=== PATIENT | female | born 1965 | race Caucasian/White ===

== ENCOUNTER 2022-01-13 22:22 | Inpatient (IN) | payer OTHER ==
[~2022-01-13] VITALS: Ht 165.1 cm; Wt 56.2 kg
[2022-01-13] MEDS ORDERED: NS 1,000 ML IV ONE ×2 (22:35→23:30)
[2022-01-13] MEDS ORDERED: IPRATROPIUM 0.5MG/ALBUTEROL 2.5MG INH SOL UD 3ML (DUONEB) NEB ONE ×2 (22:35)
[2022-01-13] MEDS ORDERED: ACETAMINOPHEN TAB 650MG DOSE (2X325MG) PO ONE (22:35)
[2022-01-13 22:57] LABS: BASO # 0.1 10^3/uL (0.0-0.2); BASO % 0.9 % (0.0-1.0); EOS % 0.1 % (0.0-3.0); HEMATOCRIT 42.2 % (36.0-47.0); HEMOGLOBIN 13.7 g/dl (12.0-15.5); LYMPH # 1.1 10^3/uL (1.5-5.0); LYMPH % 13.1 % (24.0-44.0); MEAN CORPUSCULAR HEMOGLOBIN 31.4 pg (27.0-33.0); MEAN CORPUSCULAR HGB CONC 32.5 g/dl (32.0-36.5); MEAN CORPUSCULAR VOLUME 96.6 fl (80.0-96.0); MONO # 0.5 10^3/uL (0.0-0.8); MONO % 6.1 % (2.0-8.0); NEUTROPHILS # 6.7 10^3/uL (1.5-8.5); NEUTROPHILS % 79.3 % (36.0-66.0); PLATELET COUNT, AUTOMATED 369 10^3/uL (150-450); RED BLOOD COUNT 4.37 10^6/uL (4.00-5.40); WHITE BLOOD COUNT 8.5 10^3/uL (4.0-10.0)
[2022-01-13 22:58] LABS: ABG BASE EXCESS -5.5 (-2.0-2.0); ABG HCO3 19.6 MEQ/L (22.0-26.0); ABG O2 SATURATION 87.7 % (95.0-99.0); ABG PARTIAL PRESSURE CO2 37.2 mmHg (35.0-45.0); ABG PARTIAL PRESSURE O2 56.9 mmHg (75.0-100.0); ABG STANDARD HCO3 19.8 MEQ/L (22.0-26.0); ABG TOTAL CO2 20.8 MEQ/L (22.0-29.0)
[2022-01-13 23:07] LABS: INR 1.14
[2022-01-13 23:08] LABS: PARTIAL THROMBOPLASTIN TIME 28.6 SECONDS (25.9-37.0)
[2022-01-13 23:21] LABS: ALBUMIN 3.1 GM/DL (3.2-5.2); ALT/SGPT 20 U/L (12-78); AMYLASE 48 U/L (25-115); BILIRUBIN,DIRECT 0.4 MG/DL (0.0-0.2); BILIRUBIN,TOTAL 0.7 MG/DL (0.2-1.0); BLOOD UREA NITROGEN 10 MG/DL (7-18); C REACTIVE PROTEIN QUANTITATIV 7.48 MG/DL (0.00-0.30); CALCIUM LEVEL 8.6 MG/DL (8.5-10.1); CARBON DIOXIDE LEVEL 23 MEQ/L (21-32); CHLORIDE LEVEL 105 MEQ/L (98-107); CREATININE FOR GFR 0.68 MG/DL (0.55-1.30); GLOMERULAR FILTRATION RATE > 60.0 (>51); GLUCOSE, FASTING 195 MG/DL (70-100); POTASSIUM SERUM 3.9 MEQ/L (3.5-5.1); SODIUM LEVEL 137 MEQ/L (136-145); TOTAL PROTEIN 7.2 GM/DL (6.4-8.2)
[2022-01-13 23:22] LABS: CK-MB VALUE MASS 1.5 NG/ML (<3.6); MB/CK RELATIVE INDEX 2.59 (< OR =4)
[2022-01-13] MEDS ORDERED: AZITHROMYCIN INJ 500 MG, VIAL MATE ADAPTER 1 EACH in NS 250 ML IV ONE (23:30)
[2022-01-13] MEDS ORDERED: cefTRIAXone SOD 1 GM in D5W MINI-BAG PLUS 50 ML IV ONE (23:30)
[2022-01-13 23:41] LABS: RSV AMPLIFICATION NEGATIVE (NEGATIVE)
[2022-01-14] VITALS (9 sets, daily range): BP systolic 115–137; BP diastolic 68–87; O2SAT 92–95
[2022-01-14 00:20] LABS: ABG PARTIAL PRESSURE CO2 34.3 mmHg (35.0-45.0); ABG PARTIAL PRESSURE O2 116.7 mmHg (75.0-100.0); ABG pH (ARTERIAL) 7.337 UNITS (7.350-7.450)
[2022-01-14 00:21] LABS: ABG STANDARD HCO3 18.8 MEQ/L (22.0-26.0)
[2022-01-14] MEDS ORDERED: ISOVUE-370 76% 100ML VIAL As Ordered ONE (00:48)
[2022-01-14] MEDS ORDERED: HOME MED LIST COMPLETE! XX SCH (02:40)
[2022-01-14 02:50] LABS: CK-MB VALUE MASS 1.8 NG/ML (<3.6); MB/CK RELATIVE INDEX 3.6 (< OR =4)
[2022-01-14] MEDS ORDERED: HEPARIN SOD (PORCINE) 5000UNITS/ML 1ML VIAL/SYRINGE IV PRN (03:20)
[2022-01-14] MEDS ORDERED: HEPARIN SOD (PORCINE) 5000UNITS/ML 1ML VIAL/SYRINGE IV ONE (03:20)
[2022-01-14] MEDS ORDERED: HEPARIN DRIP 25,000 UNITS in IV 1 EA IV SCH (03:20)
[2022-01-14 05:27] LABS: NT-PRO BNP 5921 PG/ML (<125)
[2022-01-14 08:20] LABS: ABG BASE EXCESS -6.4 (-2.0-2.0); ABG HCO3 17.6 MEQ/L (22.0-26.0); ABG O2 SATURATION 98.6 % (95.0-99.0); ABG PARTIAL PRESSURE CO2 30.3 mmHg (35.0-45.0); ABG PARTIAL PRESSURE O2 130.8 mmHg (75.0-100.0); ABG STANDARD HCO3 19.3 MEQ/L (22.0-26.0); ABG TOTAL CO2 18.5 MEQ/L (22.0-29.0); ABG pH (ARTERIAL) 7.382 UNITS (7.350-7.450)
[2022-01-14] MEDS: ENOXAPARIN 100MG/1ML SYRINGE (J1650 PER 10MG) SC SCH ×2 (09:00→21:15)
[2022-01-14] MEDS: ASPIRIN 81MG ENTERIC TABLET PO SCH (09:00)
[2022-01-14] MEDS: ATORVASTATIN 20 MG TAB PO SCH (09:00)
[2022-01-14] MEDS: BARICITINIB 2MG TABLET (OLUMIANT) FOR EUA PO SCH (09:00)
[2022-01-14 09:27] LABS: ABG BASE EXCESS -7.3 (-2.0-2.0); ABG HCO3 16.6 MEQ/L (22.0-26.0); ABG O2 SATURATION 91.9 % (95.0-99.0); ABG PARTIAL PRESSURE O2 63.4 mmHg (75.0-100.0); ABG STANDARD HCO3 18.5 MEQ/L (22.0-26.0); ABG TOTAL CO2 17.5 MEQ/L (22.0-29.0); ABG pH (ARTERIAL) 7.376 UNITS (7.350-7.450)
[2022-01-14] MEDS ORDERED: hydrOXYzine 25 MG TAB PO PRN (10:30)
[2022-01-14] MEDS: dexameTHASONE 4 MG/ML 1ML VIAL (J1100 PER 1MG) IV SCH (10:56)
[2022-01-14] MEDS: DOXYCYCLINE HYCLATE 100 MG in D5W MINI-BAG PLUS 100 ML IV SCH ×2 (11:04→22:04)
[2022-01-14 11:13] LABS: BASO % 0.1 % (0.0-1.0); HEMATOCRIT 35.6 % (36.0-47.0); LYMPH % 9.8 % (24.0-44.0); MEAN CORPUSCULAR HEMOGLOBIN 30.7 pg (27.0-33.0); MEAN CORPUSCULAR HGB CONC 32.3 g/dl (32.0-36.5); MEAN CORPUSCULAR VOLUME 95.2 fl (80.0-96.0); MONO # 0.4 10^3/uL (0.0-0.8); MONO % 4.6 % (2.0-8.0); NEUTROPHILS # 8.2 10^3/uL (1.5-8.5); NEUTROPHILS % 85.2 % (36.0-66.0); RED BLOOD COUNT 3.74 10^6/uL (4.00-5.40); WHITE BLOOD COUNT 9.7 10^3/uL (4.0-10.0)
[2022-01-14 11:16] LABS: HEMOGLOBIN 11.5 g/dl (12.0-15.5)
[2022-01-14 11:17] LABS: PLATELET COUNT, AUTOMATED 261 10^3/uL (150-450)
[2022-01-14 11:25] LABS: ALT/SGPT 27 U/L (12-78); BILIRUBIN,DIRECT 0.3 MG/DL (0.0-0.2); BILIRUBIN,TOTAL 0.5 MG/DL (0.2-1.0); BLOOD UREA NITROGEN 11 MG/DL (7-18); CALCIUM LEVEL 7.9 MG/DL (8.5-10.1); CARBON DIOXIDE LEVEL 20 MEQ/L (21-32); CHLORIDE LEVEL 112 MEQ/L (98-107); CREATININE FOR GFR 0.44 MG/DL (0.55-1.30); GLOMERULAR FILTRATION RATE > 60.0 (>51); GLUCOSE, FASTING 108 MG/DL (70-100); LDH LACTATE DEHYDROGENASE 355 U/L (84-246); POTASSIUM SERUM 3.8 MEQ/L (3.5-5.1); SODIUM LEVEL 141 MEQ/L (136-145)
[2022-01-14 11:26] LABS: ALBUMIN 2.5 GM/DL (3.2-5.2); C REACTIVE PROTEIN QUANTITATIV 7.21 MG/DL (0.00-0.30); CHOLESTEROL LEVEL 127 MG/DL (<200); CHOLESTEROL RISK RATIO 3.735 (<5); FERRITIN 5127 NG/ML (8-252); HDL CHOLESTEROL 34 MG/DL (>40); LDL CHOLESTEROL 84 MG/DL (<100); MAGNESIUM LEVEL 1.8 MG/DL (1.8-2.4); NON-HDL-C 93 MG/DL; NT-PRO BNP 6792 PG/ML (<125); TRIGLYCERIDES LEVEL 43 MG/DL (<150)
[2022-01-14] MEDS: IPRATROPIUM 0.5MG/ALBUTEROL 2.5MG INH SOL UD 3ML (DUONEB) NEB SCH ×2 (14:00→19:26)
[2022-01-14] MEDS ORDERED: REMDESIVIR 200 MG in NS 250 ML IV ONE (14:00)
[2022-01-14 14:09] LABS: ABG BASE EXCESS -5.3 (-2.0-2.0); ABG HCO3 18.1 MEQ/L (22.0-26.0); ABG O2 SATURATION 94.6 % (95.0-99.0); ABG PARTIAL PRESSURE CO2 28.9 mmHg (35.0-45.0); ABG PARTIAL PRESSURE O2 71.1 mmHg (75.0-100.0); ABG STANDARD HCO3 20.1 MEQ/L (22.0-26.0); ABG pH (ARTERIAL) 7.414 UNITS (7.350-7.450)
[2022-01-14] MEDS ORDERED: SODIUM CHLORIDE 0.9% INJ 10 ML SYR IV ONE (16:00)
[2022-01-14 16:38] LABS: MB/CK RELATIVE INDEX 5.41 (< OR =4)
[2022-01-14 19:46] LABS: MB/CK RELATIVE INDEX 5.41 (< OR =4)
[2022-01-14] MEDS: guaiFENesin ER 600 MG TAB PO SCH (21:14)
[2022-01-14 22:44] LABS: CHLORIDE,RANDOM URINE 141 MEQ/L; CREATININE,RANDOM URINE 76.3 MG/DL; POTASSIUM RANDOM URINE 43.9 MEQ/L; SODIUM,RANDOM URINE 89 MEQ/L
[2022-01-15] VITALS (14 sets, daily range): BP systolic 100–119; BP diastolic 60–84; O2SAT 90–97
[2022-01-15] MEDS: cefTRIAXone SOD 1 GM in D5W MINI-BAG PLUS 50 ML IV SCH (00:12)
[2022-01-15] MEDS: IPRATROPIUM 0.5MG/ALBUTEROL 2.5MG INH SOL UD 3ML (DUONEB) NEB SCH ×4 (02:00→19:25)
[2022-01-15 05:32] LABS: MEAN CORPUSCULAR HEMOGLOBIN 30.8 pg (27.0-33.0); MEAN CORPUSCULAR HGB CONC 33.3 g/dl (32.0-36.5); MEAN CORPUSCULAR VOLUME 92.5 fl (80.0-96.0); PLATELET COUNT, AUTOMATED 290 10^3/uL (150-450); RED BLOOD COUNT 3.89 10^6/uL (4.00-5.40)
[2022-01-15 06:05] LABS: ALBUMIN 2.3 GM/DL (3.2-5.2); ALT/SGPT 47 U/L (12-78); BILIRUBIN,DIRECT 0.3 MG/DL (0.0-0.2); BILIRUBIN,TOTAL 0.5 MG/DL (0.2-1.0); BLOOD UREA NITROGEN 12 MG/DL (7-18); CARBON DIOXIDE LEVEL 23 MEQ/L (21-32); CHLORIDE LEVEL 111 MEQ/L (98-107); GLOMERULAR FILTRATION RATE > 60.0 (>51); GLUCOSE, FASTING 74 MG/DL (70-100); LDH LACTATE DEHYDROGENASE 468 U/L (84-246); MAGNESIUM LEVEL 1.7 MG/DL (1.8-2.4); POTASSIUM SERUM 3.9 MEQ/L (3.5-5.1); SODIUM LEVEL 140 MEQ/L (136-145); TOTAL PROTEIN 5.7 GM/DL (6.4-8.2)
[2022-01-15 06:06] LABS: C REACTIVE PROTEIN QUANTITATIV 8.18 MG/DL (0.00-0.30); FERRITIN 2672 NG/ML (8-252); NT-PRO BNP 6774 PG/ML (<125)
[2022-01-15] MEDS ORDERED: MAG SULF 1GM/100ML (MAG RUN) 1 GM in IV 1 EA IV ONE (08:00)
[2022-01-15] MEDS ORDERED: ACETAMINOPHEN 325 MG TAB PO ONE (08:45)
[2022-01-15] MEDS: BARICITINIB 2MG TABLET (OLUMIANT) FOR EUA PO SCH (09:20)
[2022-01-15] MEDS: dexameTHASONE 4 MG/ML 1ML VIAL (J1100 PER 1MG) IV SCH (09:21)
[2022-01-15] MEDS: ASPIRIN 81MG ENTERIC TABLET PO SCH (09:21)
[2022-01-15] MEDS: guaiFENesin ER 600 MG TAB PO SCH ×2 (09:22→21:18)
[2022-01-15] MEDS: ATORVASTATIN 20 MG TAB PO SCH (09:22)
[2022-01-15] MEDS: ENOXAPARIN 100MG/1ML SYRINGE (J1650 PER 10MG) SC SCH (09:22)
[2022-01-15 12:00] LABS: CK-MB VALUE MASS 4.1 NG/ML (<3.6); MB/CK RELATIVE INDEX 3.04 (< OR =4)
[2022-01-15] MEDS: DOXYCYCLINE HYCLATE 100 MG in D5W MINI-BAG PLUS 100 ML IV SCH (12:36)
[2022-01-15] MEDS: SODIUM CHLORIDE 0.9% INJ 10 ML SYR IV SCH (15:32)
[2022-01-15] MEDS: REMDESIVIR 100 MG in NS 250 ML IV SCH (15:32)
[2022-01-15 17:07] LABS: MYCOPLASMA PNEUMONIAE IgG 103 U/mL (0-99); MYCOPLASMA PNEUMONIAE IgM <770 U/mL (0-769)
[2022-01-15] MEDS: ENOXAPARIN 30MG/0.3ML SYRINGE (J1650 PER 10MG) SC SCH (21:17)
[2022-01-16] VITALS (12 sets, daily range): BP systolic 103–120; BP diastolic 65–75; O2SAT 96–98
[2022-01-16] MEDS: DOXYCYCLINE HYCLATE 100 MG in D5W MINI-BAG PLUS 100 ML IV SCH ×3 (00:02→23:13)
[2022-01-16] MEDS: IPRATROPIUM 0.5MG/ALBUTEROL 2.5MG INH SOL UD 3ML (DUONEB) NEB SCH ×4 (01:15→20:19)
[2022-01-16] MEDS: cefTRIAXone SOD 1 GM in D5W MINI-BAG PLUS 50 ML IV SCH (01:47)
[2022-01-16 07:42] LABS: HEMATOCRIT 34.7 % (36.0-47.0); HEMOGLOBIN 11.5 g/dl (12.0-15.5); MEAN CORPUSCULAR HEMOGLOBIN 30.6 pg (27.0-33.0); MEAN CORPUSCULAR HGB CONC 33.1 g/dl (32.0-36.5); MEAN CORPUSCULAR VOLUME 92.3 fl (80.0-96.0); PLATELET COUNT, AUTOMATED 289 10^3/uL (150-450); RED BLOOD COUNT 3.76 10^6/uL (4.00-5.40); WHITE BLOOD COUNT 9.9 10^3/uL (4.0-10.0)
[2022-01-16 08:20] LABS: ALBUMIN 2.4 GM/DL (3.2-5.2); ALT/SGPT 66 U/L (12-78); BILIRUBIN,TOTAL 0.5 MG/DL (0.2-1.0); BLOOD UREA NITROGEN 16 MG/DL (7-18); C REACTIVE PROTEIN QUANTITATIV 5.81 MG/DL (0.00-0.30); CALCIUM LEVEL 8.1 MG/DL (8.5-10.1); CARBON DIOXIDE LEVEL 26 MEQ/L (21-32); CHLORIDE LEVEL 109 MEQ/L (98-107); CREATININE FOR GFR 0.42 MG/DL (0.55-1.30); FERRITIN 1436 NG/ML (8-252); GLOMERULAR FILTRATION RATE > 60.0 (>51); GLUCOSE, FASTING 86 MG/DL (70-100); LDH LACTATE DEHYDROGENASE 395 U/L (84-246); NT-PRO BNP 7204 PG/ML (<125); POTASSIUM SERUM 4.2 MEQ/L (3.5-5.1); SODIUM LEVEL 142 MEQ/L (136-145); TOTAL PROTEIN 5.8 GM/DL (6.4-8.2)
[2022-01-16] MEDS: dexameTHASONE 4 MG/ML 1ML VIAL (J1100 PER 1MG) IV SCH (09:14)
[2022-01-16] MEDS: ENOXAPARIN 30MG/0.3ML SYRINGE (J1650 PER 10MG) SC SCH ×2 (09:14→20:17)
[2022-01-16] MEDS: BARICITINIB 2MG TABLET (OLUMIANT) FOR EUA PO SCH (09:15)
[2022-01-16] MEDS: ATORVASTATIN 20 MG TAB PO SCH (09:15)
[2022-01-16] MEDS: guaiFENesin ER 600 MG TAB PO SCH ×2 (09:15→20:17)
[2022-01-16] MEDS: ASPIRIN 81MG ENTERIC TABLET PO SCH (09:15)
[2022-01-16] MEDS: REMDESIVIR 100 MG in NS 250 ML IV SCH (14:38)
[2022-01-16] MEDS: SODIUM CHLORIDE 0.9% INJ 10 ML SYR IV SCH (14:38)
[2022-01-16] MEDS ORDERED: ACETAMINOPHEN TAB 650MG DOSE (2X325MG) PO PRN (20:35)
[2022-01-17] VITALS: O2SAT 96
[2022-01-17] MEDS: cefTRIAXone SOD 1 GM in D5W MINI-BAG PLUS 50 ML IV SCH (00:30)
[2022-01-17] MEDS: IPRATROPIUM 0.5MG/ALBUTEROL 2.5MG INH SOL UD 3ML (DUONEB) NEB SCH ×2 (01:35→07:57)
[2022-01-17 04:00] VITALS: O2SAT 96
[2022-01-17 04:22] VITALS: BP 117/71
[2022-01-17 08:00] VITALS: BP 133/75
[2022-01-17 08:36] LABS: HEMATOCRIT 36.5 % (36.0-47.0); MEAN CORPUSCULAR HEMOGLOBIN 30.8 pg (27.0-33.0); MEAN CORPUSCULAR HGB CONC 32.9 g/dl (32.0-36.5); MEAN CORPUSCULAR VOLUME 93.6 fl (80.0-96.0); PLATELET COUNT, AUTOMATED 318 10^3/uL (150-450); WHITE BLOOD COUNT 8.1 10^3/uL (4.0-10.0)
[2022-01-17 09:05] LABS: ALBUMIN 2.6 GM/DL (3.2-5.2); ALT/SGPT 66 U/L (12-78); BILIRUBIN,TOTAL 0.4 MG/DL (0.2-1.0); BLOOD UREA NITROGEN 15 MG/DL (7-18); C REACTIVE PROTEIN QUANTITATIV 3.12 MG/DL (0.00-0.30); CALCIUM LEVEL 8.6 MG/DL (8.5-10.1); CARBON DIOXIDE LEVEL 23 MEQ/L (21-32); CHLORIDE LEVEL 109 MEQ/L (98-107); FERRITIN 969 NG/ML (8-252); GLOMERULAR FILTRATION RATE > 60.0 (>51); GLUCOSE, FASTING 99 MG/DL (70-100); LDH LACTATE DEHYDROGENASE 391 U/L (84-246); NT-PRO BNP 9166 PG/ML (<125); POTASSIUM SERUM 4.4 MEQ/L (3.5-5.1); SODIUM LEVEL 141 MEQ/L (136-145); TOTAL PROTEIN 6.3 GM/DL (6.4-8.2)
[2022-01-17] MEDS: ATORVASTATIN 20 MG TAB PO SCH (09:41)
[2022-01-17] MEDS: ASPIRIN 81MG ENTERIC TABLET PO SCH (09:41)
[2022-01-17] MEDS: dexameTHASONE 4 MG/ML 1ML VIAL (J1100 PER 1MG) IV SCH (09:41)
[2022-01-17] MEDS: BARICITINIB 2MG TABLET (OLUMIANT) FOR EUA PO SCH (09:41)
[2022-01-17] MEDS: guaiFENesin ER 600 MG TAB PO SCH (09:41)
[2022-01-17] MEDS: ENOXAPARIN 30MG/0.3ML SYRINGE (J1650 PER 10MG) SC SCH (09:42)
[2022-01-17] MEDS: DOXYCYCLINE HYCLATE 100 MG in D5W MINI-BAG PLUS 100 ML IV SCH (09:42)
[2022-01-17] MEDS ORDERED: ATOR1TAB21 PO (11:29)
[2022-01-17] MEDS ORDERED: IPRA0.00 NEB (11:29)
[2022-01-17] MEDS ORDERED: MUCI600T31 PO (11:29)
[2022-01-17] MEDS ORDERED: LOSA25TA13 PO (11:29)
[2022-01-17] MEDS ORDERED: PRED10TA2 PO (11:29)
[2022-01-17] MEDS ORDERED: ASPI-551 PO (11:29)
[2022-01-17 12:27] VITALS: O2SAT 93
[2022-01-17] MEDS ORDERED: COMBAER6 INH (12:44)
[2022-01-17 18:07] LABS: BODY FLUID CULTURE Not indicated. (.); LEGIONELLA ANTIGEN URINE Negative (Negative); ORGANISM ID Not indicated. (.); SPECIMEN SOURCE Urine (.); URINE STREP PNEUMONIAE ANTIGEN Negative (Negative)
[2022-01-17] MEDS ORDERED: DOXY-350 PO (18:29)
[2022-01-17] MEDS ORDERED: CEFD300CAP PO (18:29)
[2022-01-18 14:09] LABS: CHLAMYDIA PNEUMONIAE IgM <1:10 (Neg:<1:10)
== END 2022-01-17 14:40 | disposition home or self-care (01) | DRG 137 ==
LOC: M ED 22:22 → EDBEDREQTM 01-14 08:53 → EDBEDREQSVC 01-14 08:53 → M ED INP 01-14 09:26 → EDBD 01-14 09:26 → ENRESERV 01-14 11:22 → M ICU 01-14 11:55 → M 4MAIN 01-15 18:12
PROVIDERS: ADMIT Internal Medicine; ATTEND Internal Medicine
DX: U07.1 COVID-19 (principal); I21.A1 Myocardial infarction type 2; J96.01 Acute respiratory failure with hypoxia; J12.82 Pneumonia due to coronavirus disease 2019; J15.9 Unspecified bacterial pneumonia; E87.2 Acidosis; F17.200 Nicotine dependence, unspecified, uncomplicated; F41.9 Anxiety disorder, unspecified; J44.9 Chronic obstructive pulmonary disease, unspecified; Z79.82 Long term (current) use of aspirin; Z79.899 Other long term (current) drug therapy

== ENCOUNTER 2022-02-25 10:09 | Emergency (ER) | payer OTHER ==
[~2022-02-25] VITALS: Ht 152.4 cm; Wt 54.5 kg
[~2022-02-25 10:09] MED LIST: ASPI-551 PO; ATOR1TAB21 PO; CEFD300CAP PO; COMBAER6 INH; DOXY-350 PO; IPRA0.00 NEB; LOSA25TA13 PO; MUCI600T31 PO; PRED10TA2 PO
[2022-02-25] MEDS ORDERED: NS 500 ML IV ONE (12:25)
[2022-02-25] MEDS: COMBIVENT RESPIMAT 100-20MCG INHALER 4GM INH SCH ×2 (13:05→13:06)
[2022-02-25 13:14] LABS: HEMATOCRIT 42.1 % (36.0-47.0); HEMOGLOBIN 13.4 g/dl (12.0-15.5); MEAN CORPUSCULAR HEMOGLOBIN 30.2 pg (27.0-33.0); MEAN CORPUSCULAR HGB CONC 31.8 g/dl (32.0-36.5); MEAN CORPUSCULAR VOLUME 94.8 fl (80.0-96.0); PLATELET COUNT, AUTOMATED 414 10^3/uL (150-450); RED BLOOD COUNT 4.44 10^6/uL (4.00-5.40); WHITE BLOOD COUNT 8.6 10^3/uL (4.0-10.0)
[2022-02-25 13:26] LABS: BLOOD UREA NITROGEN 7 MG/DL (7-18); CALCIUM LEVEL 9.2 MG/DL (8.5-10.1); CARBON DIOXIDE LEVEL 26 MEQ/L (21-32); CHLORIDE LEVEL 107 MEQ/L (98-107); CREATININE FOR GFR 0.53 MG/DL (0.55-1.30); GLOMERULAR FILTRATION RATE > 60.0 (>51); GLUCOSE, FASTING 83 MG/DL (70-100); SODIUM LEVEL 140 MEQ/L (136-145)
[2022-02-25 13:56] LABS: ATYPICAL LYMPH 1 % (0-5); EOSINOPHILS 1 % (0-3); LYMPHOCYTES 34 % (16-44); MONOCYTES 6 % (0-5); NEUTROPHILS 58 % (28-66); PLATELET ESTIMATE NORMAL (NORMAL)
[2022-02-25 13:57] LABS: ANISOCYTOSIS 1+; OVALOCYTES 1+
[2022-02-25 14:00] LABS: NT-PRO BNP 8074 PG/ML (<125)
[2022-02-25] MEDS ORDERED: FUROSEMIDE 40MG/4ML VIAL (J1940) IV ONE (15:15)
[2022-02-25] MEDS ORDERED: LASI40TA9 PO (15:48)
[2022-02-25] MEDS ORDERED: SPIR-10 PO (15:49)
[2022-02-25 16:16] VITALS: BP 137/76
== END 2022-02-25 16:52 | disposition home or self-care (01) ==
LOC: M ED 10:09
DX: I50.20 Unspecified systolic (congestive) heart failure (principal); R06.02 Shortness of breath; R94.31 Abnormal electrocardiogram [ECG] [EKG]; Z79.899 Other long term (current) drug therapy
CPT/HCPCS: 71046; 80048; 83880; 85025; 87486; 87581; 87633; 87798; 93005; 94640; 96361; 96374; 99284; J1940

== ENCOUNTER → 2022-03-08 | Outpatient (REF) | payer OTHER ==
[~2022-03-08] MED LIST changes: +LASI40TA9 PO; +SPIR-10 PO
[2022-03-08 16:35] LABS: BLOOD UREA NITROGEN 10 MG/DL (7-18); CALCIUM LEVEL 9.4 MG/DL (8.5-10.1); CARBON DIOXIDE LEVEL 30 MEQ/L (21-32); CHLORIDE LEVEL 104 MEQ/L (98-107); CREATININE FOR GFR 0.49 MG/DL (0.55-1.30); GLOMERULAR FILTRATION RATE > 60.0 (>51); GLUCOSE, FASTING 79 MG/DL (70-100); NT-PRO BNP 1676 PG/ML (<125); POTASSIUM SERUM 4.1 MEQ/L (3.5-5.1); SODIUM LEVEL 139 MEQ/L (136-145)
== END ==
LOC: M LABDRAWC 15:39
PROVIDERS: ATTEND Internal Medicine Cardiovascular Disease
DX: I50.30 Unspecified diastolic (congestive) heart failure (principal); I10 Essential (primary) hypertension

== ENCOUNTER 2022-08-31 11:56 | Inpatient (IN) | payer OTHER ==
[~2022-08-31] VITALS: Ht 152.4 cm; Wt 54.6 kg
[2022-08-31] VITALS (7 sets, daily range): BP systolic 130–142; BP diastolic 68–72; O2SAT 93–100
[2022-08-31] MEDS: TIOTROPIUM INHALER/CAPSULE (SPIRIVA) INH SCH (08:00)
[~2022-08-31 11:56] MED LIST changes: -DOXY-350 PO; +DOXY-444 PO
[2022-08-31] MEDS: METOPROLOL 5 MG/5 ML VIAL IV SCH ×5 (12:29→12:56)
[2022-08-31 12:33] LABS: ABG BASE EXCESS -1.7 (-2.0-2.0); ABG HCO3 21.6 MEQ/L (22.0-26.0); ABG O2 SATURATION 99.4 % (95.0-99.0); ABG PARTIAL PRESSURE CO2 32.9 mmHg (35.0-45.0); ABG PARTIAL PRESSURE O2 186.9 mmHg (75.0-100.0); ABG STANDARD HCO3 23.1 MEQ/L (22.0-26.0); ABG TOTAL CO2 22.6 MEQ/L (22.0-29.0); ABG pH (ARTERIAL) 7.435 UNITS (7.350-7.450)
[2022-08-31] MEDS ORDERED: ASPI81TA26 PO (13:02)
[2022-08-31] MEDS ORDERED: HOME MED LIST COMPLETE! XX SCH (13:05)
[2022-08-31 13:09] LABS: BASO # 0.1 10^3/uL (0.0-0.2); BASO % 0.4 % (0.0-1.0); EOS % 0.3 % (0.0-3.0); HEMATOCRIT 47.2 % (36.0-47.0); HEMOGLOBIN 15.8 g/dl (12.0-15.5); LYMPH # 2.9 10^3/uL (1.5-5.0); LYMPH % 25.3 % (24.0-44.0); MEAN CORPUSCULAR HEMOGLOBIN 31.5 pg (27.0-33.0); MEAN CORPUSCULAR HGB CONC 33.5 g/dl (32.0-36.5); MONO # 0.9 10^3/uL (0.0-0.8); MONO % 7.5 % (2.0-8.0); NEUTROPHILS # 7.7 10^3/uL (1.5-8.5); NEUTROPHILS % 66.2 % (36.0-66.0); PLATELET COUNT, AUTOMATED 244 10^3/uL (150-450); RED BLOOD COUNT 5.02 10^6/uL (4.00-5.40); WHITE BLOOD COUNT 11.6 10^3/uL (4.0-10.0)
[2022-08-31 13:32] LABS: INR 1.15
[2022-08-31 13:41] LABS: ALBUMIN 3.8 G/DL (3.2-5.2); ALKALINE PHOSPHATASE 81 U/L (46-116); ALT/SGPT 40 U/L (7.0-40); AST/SGOT 32 U/L (<34); BILIRUBIN,DIRECT 0.6 MG/DL (<0.4); BLOOD UREA NITROGEN 12 MG/DL (9-23); CALCIUM LEVEL 8.7 MG/DL (8.5-10.1); CARBON DIOXIDE LEVEL 22 MMOL/L (20-31); CHLORIDE LEVEL 102 MMOL/L (98-107); CPK CREATINE PHOSPHOKINASE 157 U/L (34-145); GLOMERULAR FILTRATION RATE > 60.0 (>51); GLUCOSE, FASTING 207 MG/DL (60-100); MB/CK RELATIVE INDEX 1.91 (< OR =4); POTASSIUM SERUM 4.3 MMOL/L (3.5-5.1); SODIUM LEVEL 137 MMOL/L (136-145); THYROID STIMULATING HORMONE 4.274 uIU/ML (0.55-4.78); TOTAL PROTEIN 6.7 G/DL (5.7-8.2)
[2022-08-31] MEDS ORDERED: FUROSEMIDE 40MG/4ML VIAL (J1940) IV ONE (13:45)
[2022-08-31] MEDS ORDERED: DIGOXIN INJ 0.5 MG/2 ML AMP IV ONE ×2 (13:55→14:50)
[2022-08-31] MEDS ORDERED: HEPARIN SOD (PORCINE) 5000UNITS/ML 1ML VIAL/SYRINGE IV PRN (14:55)
[2022-08-31] MEDS ORDERED: IPRATROPIUM 0.5MG/ALBUTEROL 2.5MG INH SOL UD 3ML (DUONEB) NEB PRN (15:20)
[2022-08-31 16:46] LABS: CHOLESTEROL LEVEL 160 MG/DL (<200); CHOLESTEROL RISK RATIO 6.69 (<5); HDL CHOLESTEROL 23.9 MG/DL (>40); LDL CHOLESTEROL 116.1 MG/DL (<100); NON-HDL-C 136 MG/DL; TRIGLYCERIDES LEVEL 100 MG/DL (<150)
[2022-08-31] MEDS: HEPARIN DRIP 25,000 UNITS in IV 1 EA IV SCH (17:33)
[2022-08-31] MEDS: METOPROLOL TART 25 MG TABLET PO SCH ×2 (18:14→23:17)
[2022-08-31] MEDS ORDERED: METOPROLOL TART 12.5 MG PER 1/2 TAB PO SCH (21:00)
[2022-08-31] MEDS: DIGOXIN 0.25 MG TAB PO SCH (21:02)
[2022-09-01] VITALS (16 sets, daily range): BP systolic 105–135; BP diastolic 52–88; O2SAT 93–97
[2022-09-01] MEDS: DIGOXIN 0.25 MG TAB PO SCH (03:27)
[2022-09-01] MEDS: METOPROLOL TART 25 MG TABLET PO SCH ×3 (05:59→17:30)
[2022-09-01 06:07] LABS: HEMATOCRIT 41.5 % (36.0-47.0); MEAN CORPUSCULAR HEMOGLOBIN 31.2 pg (27.0-33.0); MEAN CORPUSCULAR VOLUME 94.5 fl (80.0-96.0); PLATELET COUNT, AUTOMATED 197 10^3/uL (150-450); RED BLOOD COUNT 4.39 10^6/uL (4.00-5.40)
[2022-09-01 06:11] LABS: HEMOGLOBIN 13.7 g/dl (12.0-15.5)
[2022-09-01 07:01] LABS: BLOOD UREA NITROGEN 17 MG/DL (9-23); CALCIUM LEVEL 7.6 MG/DL (8.5-10.1); CARBON DIOXIDE LEVEL 25 MMOL/L (20-31); CHLORIDE LEVEL 101 MMOL/L (98-107); CREATININE FOR GFR 0.72 MG/DL (0.55-1.30); GLOMERULAR FILTRATION RATE > 60.0 (>51); GLUCOSE, FASTING 85 MG/DL (60-100); MAGNESIUM LEVEL 1.6 MG/DL (1.8-2.4); POTASSIUM SERUM 3.9 MMOL/L (3.5-5.1); SODIUM LEVEL 137 MMOL/L (136-145)
[2022-09-01] MEDS: TIOTROPIUM INHALER/CAPSULE (SPIRIVA) INH SCH (07:49)
[2022-09-01] MEDS ORDERED: MAG SULF 1GM/100ML (MAG RUN) 1 GM in IV 1 EA IV ONE (09:00)
[2022-09-01] MEDS ORDERED: DIGOXIN 0.125 MG TAB PO SCH (10:00)
[2022-09-01] MEDS: PANTOPRAZOLE 40MG TAB (PROTONIX) PO SCH (12:06)
[2022-09-01] MEDS: HEPARIN DRIP 25,000 UNITS in IV 1 EA IV SCH (16:33)
[2022-09-01 17:52] LABS: HEMATOCRIT 40.5 % (36.0-47.0); HEMOGLOBIN 13.5 g/dl (12.0-15.5)
[2022-09-02] VITALS (19 sets, daily range): BP systolic 96–130; BP diastolic 56–77; O2SAT 88–98
[2022-09-02 05:40] LABS: MEAN CORPUSCULAR HEMOGLOBIN 32.1 pg (27.0-33.0); MEAN CORPUSCULAR HGB CONC 33.3 g/dl (32.0-36.5); MEAN CORPUSCULAR VOLUME 96.3 fl (80.0-96.0); PLATELET COUNT, AUTOMATED 167 10^3/uL (150-450); RED BLOOD COUNT 4.05 10^6/uL (4.00-5.40); WHITE BLOOD COUNT 8.4 10^3/uL (4.0-10.0)
[2022-09-02] MEDS: METOPROLOL TART 25 MG TABLET PO SCH ×2 (05:45)
[2022-09-02 05:57] LABS: INR 1.1; PROTHROMBIN TIME 14.5 SECONDS (12.5-14.5)
[2022-09-02 05:58] LABS: PARTIAL THROMBOPLASTIN TIME 58.5 SECONDS (24.8-34.2)
[2022-09-02 06:32] LABS: BLOOD UREA NITROGEN 8 MG/DL (9-23); CALCIUM LEVEL 7.7 MG/DL (8.5-10.1); CARBON DIOXIDE LEVEL 27 MMOL/L (20-31); CHLORIDE LEVEL 104 MMOL/L (98-107); CREATININE FOR GFR 0.49 MG/DL (0.55-1.30); GLOMERULAR FILTRATION RATE > 60.0 (>51); GLUCOSE, FASTING 91 MG/DL (60-100); MAGNESIUM LEVEL 1.7 MG/DL (1.8-2.4); POTASSIUM SERUM 3.5 MMOL/L (3.5-5.1); SODIUM LEVEL 136 MMOL/L (136-145)
[2022-09-02] MEDS ORDERED: MAG SULF 1GM/100ML (MAG RUN) 1 GM in IV 1 EA IV ONE ×2 (08:00→10:05)
[2022-09-02] MEDS: TIOTROPIUM INHALER/CAPSULE (SPIRIVA) INH SCH (08:01)
[2022-09-02] MEDS: PANTOPRAZOLE 40MG TAB (PROTONIX) PO SCH (08:18)
[2022-09-02] MEDS ORDERED: POTASSIUM CHLORIDE 10MEQ SR TABLET PO ONE (10:05)
[2022-09-02] MEDS ORDERED: METOPROLOL TART 25 MG TABLET PO STA (12:12)
[2022-09-02] MEDS: HEPARIN DRIP 25,000 UNITS in IV 1 EA IV SCH (14:12)
[2022-09-02 18:13] LABS: INR 1.05
[2022-09-02 18:15] LABS: PARTIAL THROMBOPLASTIN TIME 55.6 SECONDS (24.8-34.2)
[2022-09-02] MEDS: METOPROLOL TART 50 MG TAB PO SCH (22:20)
[2022-09-03] VITALS (18 sets, daily range): BP systolic 114–154; BP diastolic 67–88; O2SAT 95–100
[2022-09-03 01:23] LABS: INR 1.01; PROTHROMBIN TIME 13.5 SECONDS (12.5-14.5)
[2022-09-03] MEDS: TIOTROPIUM INHALER/CAPSULE (SPIRIVA) INH SCH (07:29)
[2022-09-03 07:50] LABS: HEMATOCRIT 40.2 % (36.0-47.0); HEMOGLOBIN 13.1 g/dl (12.0-15.5); MEAN CORPUSCULAR HGB CONC 32.6 g/dl (32.0-36.5); MEAN CORPUSCULAR VOLUME 95.3 fl (80.0-96.0); PLATELET COUNT, AUTOMATED 202 10^3/uL (150-450); RED BLOOD COUNT 4.22 10^6/uL (4.00-5.40); WHITE BLOOD COUNT 8.6 10^3/uL (4.0-10.0)
[2022-09-03 08:02] LABS: INR 1.12; PROTHROMBIN TIME 14.7 SECONDS (12.5-14.5)
[2022-09-03 08:04] LABS: PARTIAL THROMBOPLASTIN TIME 72.9 SECONDS (24.8-34.2)
[2022-09-03 08:21] LABS: BLOOD UREA NITROGEN 9 MG/DL (9-23); CARBON DIOXIDE LEVEL 25 MMOL/L (20-31); CHLORIDE LEVEL 106 MMOL/L (98-107); CREATININE FOR GFR 0.46 MG/DL (0.55-1.30); GLOMERULAR FILTRATION RATE > 60.0 (>51); GLUCOSE, FASTING 122 MG/DL (60-100); MAGNESIUM LEVEL 1.7 MG/DL (1.8-2.4); POTASSIUM SERUM 3.9 MMOL/L (3.5-5.1); SODIUM LEVEL 140 MMOL/L (136-145)
[2022-09-03] MEDS: PANTOPRAZOLE 40MG TAB (PROTONIX) PO SCH (08:58)
[2022-09-03] MEDS: METOPROLOL TART 50 MG TAB PO SCH (08:58)
[2022-09-03] MEDS: HEPARIN DRIP 25,000 UNITS in IV 1 EA IV SCH (11:30)
[2022-09-03] MEDS ORDERED: ELIQ5TAB PO (11:39)
[2022-09-03] MEDS ORDERED: METOPROLOL TART 25 MG TABLET PO ONE (12:00)
[2022-09-03] MEDS: APIXABAN 5 MG TAB (ELIQUIS) PO SCH ×2 (13:27→20:11)
[2022-09-03] MEDS: MAGNESIUM OXIDE 400MG TAB (MAG-OX) PO SCH (17:22)
[2022-09-03] MEDS: VANCOMYCIN HCL 1,000 MG in D5W 250 ML IV SCH (17:23)
[2022-09-03] MEDS: METOPROLOL TART 25 MG TABLET PO SCH (20:12)
[2022-09-04] VITALS: BP 133/90
[2022-09-04 04:00] VITALS: BP 125/65
[2022-09-04] MEDS: VANCOMYCIN HCL 1,000 MG in D5W 250 ML IV SCH ×2 (06:14→17:36)
[2022-09-04 06:55] LABS: HEMATOCRIT 40.8 % (36.0-47.0); HEMOGLOBIN 13.5 g/dl (12.0-15.5); MEAN CORPUSCULAR HEMOGLOBIN 31.9 pg (27.0-33.0); MEAN CORPUSCULAR HGB CONC 33.1 g/dl (32.0-36.5); MEAN CORPUSCULAR VOLUME 96.5 fl (80.0-96.0); PLATELET COUNT, AUTOMATED 205 10^3/uL (150-450); RED BLOOD COUNT 4.23 10^6/uL (4.00-5.40); WHITE BLOOD COUNT 8.3 10^3/uL (4.0-10.0)
[2022-09-04 07:37] VITALS: BP 122/80
[2022-09-04 07:41] LABS: BLOOD UREA NITROGEN 10 MG/DL (9-23); CALCIUM LEVEL 8.4 MG/DL (8.5-10.1); CARBON DIOXIDE LEVEL 26 MMOL/L (20-31); CHLORIDE LEVEL 106 MMOL/L (98-107); CREATININE FOR GFR 0.51 MG/DL (0.55-1.30); GLOMERULAR FILTRATION RATE > 60.0 (>51); GLUCOSE, FASTING 146 MG/DL (60-100); MAGNESIUM LEVEL 1.9 MG/DL (1.8-2.4); POTASSIUM SERUM 4.4 MMOL/L (3.5-5.1); SODIUM LEVEL 141 MMOL/L (136-145)
[2022-09-04] MEDS: TIOTROPIUM INHALER/CAPSULE (SPIRIVA) INH SCH (07:45)
[2022-09-04] MEDS: APIXABAN 5 MG TAB (ELIQUIS) PO SCH (09:36)
[2022-09-04] MEDS: MAGNESIUM OXIDE 400MG TAB (MAG-OX) PO SCH (09:37)
[2022-09-04] MEDS: PANTOPRAZOLE 40MG TAB (PROTONIX) PO SCH (09:37)
[2022-09-04] MEDS: METOPROLOL TART 25 MG TABLET PO SCH (09:37)
[2022-09-04] MEDS: ACETAMINOPHEN TAB 650MG DOSE (2X325MG) PO PRN (09:37)
[2022-09-04 12:00] VITALS: BP 101/71
[2022-09-04 16:00] VITALS: BP 111/72
[2022-09-04] MEDS ORDERED: VANCOMYCIN HCL 500 MG in D5W MINI-BAG PLUS 100 ML IV ONE (19:00)
[2022-09-04 20:00] VITALS: BP 124/76
[2022-09-04] MEDS: ENOXAPARIN 60MG/0.6ML SYRINGE (J1650 PER 10MG) SC SCH (20:04)
[2022-09-04] MEDS ORDERED: METOPROLOL TART 25 MG TABLET PO SCH ×2 (21:00)
[2022-09-05] VITALS: BP 107/69
[2022-09-05 04:00] VITALS: BP 118/72
[2022-09-05 06:23] LABS: HEMATOCRIT 40.8 % (36.0-47.0); HEMOGLOBIN 13.5 g/dl (12.0-15.5); MEAN CORPUSCULAR HEMOGLOBIN 31.8 pg (27.0-33.0); MEAN CORPUSCULAR HGB CONC 33.1 g/dl (32.0-36.5); PLATELET COUNT, AUTOMATED 209 10^3/uL (150-450); RED BLOOD COUNT 4.25 10^6/uL (4.00-5.40); WHITE BLOOD COUNT 8.4 10^3/uL (4.0-10.0)
[2022-09-05] MEDS: VANCOMYCIN HCL 1,000 MG in D5W 250 ML IV SCH (06:31)
[2022-09-05 06:49] LABS: BLOOD UREA NITROGEN 13 MG/DL (9-23); CALCIUM LEVEL 8.3 MG/DL (8.5-10.1); CARBON DIOXIDE LEVEL 24 MMOL/L (20-31); CHLORIDE LEVEL 106 MMOL/L (98-107); CREATININE FOR GFR 0.56 MG/DL (0.55-1.30); GLOMERULAR FILTRATION RATE > 60.0 (>51); GLUCOSE, FASTING 100 MG/DL (60-100); MAGNESIUM LEVEL 1.9 MG/DL (1.8-2.4); POTASSIUM SERUM 4.2 MMOL/L (3.5-5.1); SODIUM LEVEL 141 MMOL/L (136-145)
[2022-09-05 07:38] VITALS: BP 138/84
[2022-09-05] MEDS ORDERED: METOPROLOL TARTRATE 100MG TAB PO ONE (08:40)
[2022-09-05] MEDS: TIOTROPIUM INHALER/CAPSULE (SPIRIVA) INH SCH (08:56)
[2022-09-05] MEDS: ENOXAPARIN 60MG/0.6ML SYRINGE (J1650 PER 10MG) SC SCH ×2 (08:57→20:45)
[2022-09-05] MEDS: MAGNESIUM OXIDE 400MG TAB (MAG-OX) PO SCH (08:58)
[2022-09-05] MEDS: PANTOPRAZOLE 40MG TAB (PROTONIX) PO SCH (08:58)
[2022-09-05] MEDS ORDERED: METOPROLOL TART 25 MG TABLET PO SCH (09:00)
[2022-09-05] MEDS ORDERED: FUROSEMIDE 20MG/2ML VIAL (J1940) IV ONE (11:40)
[2022-09-05] MEDS: ONDANSETRON 4MG 2ML VIAL IV SCH ×2 (11:41→17:01)
[2022-09-05 12:00] VITALS: BP 116/84
[2022-09-05] MEDS ORDERED: ceFAZolin SOD 2 GM in IV 1 EA IV SCH (12:00)
[2022-09-05] MEDS ORDERED: NAFCILLIN SOD 2 GM in D5W MINI-BAG PLUS 50 ML IV SCH (13:00)
[2022-09-05 16:00] VITALS: BP 112/70
[2022-09-05] MEDS ORDERED: PILL CUTTER 1 EACH XX PRN (16:40)
[2022-09-05] MEDS ORDERED: METOPROLOL TART 50 MG TAB PO ONE (16:45)
[2022-09-05 20:00] VITALS: BP 112/68
[2022-09-05] MEDS: METOPROLOL TART 25 MG TABLET PO SCH (20:45)
[2022-09-05] MEDS: RAMELTEON 8 MG TAB (ROZEREM) PO PRN (20:45)
[2022-09-06] VITALS: BP 106/72
[2022-09-06] MEDS: ONDANSETRON 4MG 2ML VIAL IV SCH ×6 (00:53→23:34)
[2022-09-06 04:00] VITALS: BP 116/75
[2022-09-06 05:53] LABS: HEMATOCRIT 42.4 % (36.0-47.0); HEMOGLOBIN 13.9 g/dl (12.0-15.5); MEAN CORPUSCULAR HEMOGLOBIN 31.8 pg (27.0-33.0); MEAN CORPUSCULAR HGB CONC 32.8 g/dl (32.0-36.5); PLATELET COUNT, AUTOMATED 228 10^3/uL (150-450); RED BLOOD COUNT 4.37 10^6/uL (4.00-5.40); WHITE BLOOD COUNT 8.2 10^3/uL (4.0-10.0)
[2022-09-06 06:20] LABS: CARBON DIOXIDE LEVEL 25 MMOL/L (20-31); CHLORIDE LEVEL 105 MMOL/L (98-107); POTASSIUM SERUM 3.9 MMOL/L (3.5-5.1); SODIUM LEVEL 140 MMOL/L (136-145)
[2022-09-06 06:26] LABS: BLOOD UREA NITROGEN 16 MG/DL (9-23); CALCIUM LEVEL 8.1 MG/DL (8.5-10.1); GLUCOSE, FASTING 83 MG/DL (60-100)
[2022-09-06 06:28] LABS: CREATININE FOR GFR 0.78 MG/DL (0.55-1.30); GLOMERULAR FILTRATION RATE > 60.0 (>51)
[2022-09-06] MEDS: ENOXAPARIN 60MG/0.6ML SYRINGE (J1650 PER 10MG) SC SCH ×2 (07:25→20:17)
[2022-09-06 08:00] VITALS: BP 110/66
[2022-09-06 08:01] LABS: ERYTHROCYTE SEDIMENTATION RATE 10 mm/hr (0-30)
[2022-09-06] MEDS: TIOTROPIUM INHALER/CAPSULE (SPIRIVA) INH SCH (08:13)
[2022-09-06] MEDS: PANTOPRAZOLE 40MG TAB (PROTONIX) PO SCH (09:24)
[2022-09-06] MEDS: METOPROLOL TARTRATE 100MG TAB PO SCH (09:25)
[2022-09-06 11:58] VITALS: BP 111/66
[2022-09-06 15:47] VITALS: BP 108/68
[2022-09-06 20:00] VITALS: BP 118/82
[2022-09-06] MEDS: ceFAZolin SOD 2 GM in IV 1 EA IV SCH (20:12)
[2022-09-06] MEDS: METOPROLOL TART 25 MG TABLET PO SCH (20:16)
[2022-09-06] MEDS: ACETAMINOPHEN TAB 650MG DOSE (2X325MG) PO PRN (20:16)
[2022-09-06] MEDS: RAMELTEON 8 MG TAB (ROZEREM) PO PRN (20:17)
[2022-09-07] VITALS (17 sets, daily range): BP systolic 107–148; BP diastolic 67–92; O2SAT 90–100
[2022-09-07] MEDS: ceFAZolin SOD 2 GM in IV 1 EA IV SCH ×3 (03:56→20:51)
[2022-09-07] MEDS: ONDANSETRON 4MG 2ML VIAL IV SCH ×4 (05:27→23:05)
[2022-09-07 07:43] LABS: HEMATOCRIT 40.5 % (36.0-47.0); HEMOGLOBIN 13.2 g/dl (12.0-15.5); MEAN CORPUSCULAR HEMOGLOBIN 31.6 pg (27.0-33.0); MEAN CORPUSCULAR HGB CONC 32.6 g/dl (32.0-36.5); MEAN CORPUSCULAR VOLUME 96.9 fl (80.0-96.0); PLATELET COUNT, AUTOMATED 234 10^3/uL (150-450); RED BLOOD COUNT 4.18 10^6/uL (4.00-5.40); WHITE BLOOD COUNT 8.2 10^3/uL (4.0-10.0)
[2022-09-07 08:11] LABS: CHLORIDE LEVEL 101 MMOL/L (98-107); POTASSIUM SERUM 4.2 MMOL/L (3.5-5.1); SODIUM LEVEL 137 MMOL/L (136-145)
[2022-09-07 08:12] LABS: CARBON DIOXIDE LEVEL 26 MMOL/L (20-31)
[2022-09-07 08:17] LABS: BLOOD UREA NITROGEN 23 MG/DL (9-23); CALCIUM LEVEL 8.2 MG/DL (8.5-10.1); GLUCOSE, FASTING 101 MG/DL (60-100)
[2022-09-07 08:18] LABS: MAGNESIUM LEVEL 1.9 MG/DL (1.8-2.4)
[2022-09-07 08:20] LABS: CREATININE FOR GFR 0.79 MG/DL (0.55-1.30); GLOMERULAR FILTRATION RATE > 60.0 (>51)
[2022-09-07 08:26] LABS: ATYPICAL LYMPH 5 % (0-5); EOSINOPHILS 2 % (0-3); LYMPHOCYTES 16 % (16-44); MONOCYTES 3 % (0-5); NEUTROPHILS 72 % (28-66)
[2022-09-07 08:27] LABS: ANISOCYTOSIS 1+; PLATELET ESTIMATE NORMAL (NORMAL)
[2022-09-07] MEDS ORDERED: ceFAZolin SOD 2 GM in IV 1 EA IV ONE (08:35)
[2022-09-07] MEDS ORDERED: LR 1,000 ML IV SCH (08:35)
[2022-09-07] MEDS: TIOTROPIUM INHALER/CAPSULE (SPIRIVA) INH SCH (09:14)
[2022-09-07] MEDS: PANTOPRAZOLE 40MG TAB (PROTONIX) PO SCH (09:41)
[2022-09-07] MEDS: METOPROLOL TARTRATE 100MG TAB PO SCH (09:42)
[2022-09-07] MEDS ORDERED: LIDOCAINE 1% SDV 30ML VIAL As Ordered ONE (17:38)
[2022-09-07] MEDS ORDERED: ceFAZolin 2 GM/D5W 50 ML IV BAG As Ordered ONE (17:38)
[2022-09-07] MEDS ORDERED: DIGOXIN INJ 0.5 MG/2 ML AMP As Ordered ONE (18:49)
[2022-09-07] MEDS ORDERED: DIGOXIN INJ 0.5 MG/2 ML AMP IV ONE ×2 (18:55→20:00)
[2022-09-07] MEDS ORDERED: propofoL 200 MG/20 ML VIAL As Ordered ONE (19:01)
[2022-09-07] MEDS ORDERED: MIDAZOLAM INJ 2MG/2ML VIAL (J2250 PER 1MG) As Ordered ONE (19:01)
[2022-09-07] MEDS ORDERED: LIDOCAINE 2% 100MG/5ML SDV (FOR ANES.) As Ordered ONE (19:01)
[2022-09-07] MEDS ORDERED: METOPROLOL 5 MG/5 ML VIAL As Ordered ONE (19:01)
[2022-09-07] MEDS ORDERED: fentaNYL 100 MCG/2 ML INJECTION As Ordered ONE (19:01)
[2022-09-07] MEDS ORDERED: HYDROMORPHONE HCL 0.5 MG/ 0.5 ML SYRINGE (J1170 PER 1) IV PRN (19:05)
[2022-09-07] MEDS ORDERED: ONDANSETRON 4MG 2ML VIAL IV PRN (19:05)
[2022-09-07] MEDS ORDERED: fentaNYL 100 MCG/2 ML INJECTION IV PRN (19:05)
[2022-09-07] MEDS ORDERED: oxyCODONE 5MG TAB PO PRN (19:05)
[2022-09-07] MEDS: METOPROLOL TART 50 MG TAB PO SCH (19:35)
[2022-09-07] MEDS ORDERED: diphenhydrAMINE 25MG CAP PO ONE ×2 (22:00)
[2022-09-08] VITALS: BP 148/85
[2022-09-08 04:00] VITALS: BP 139/78
[2022-09-08] MEDS: ceFAZolin SOD 2 GM in IV 1 EA IV SCH ×2 (05:11→12:00)
[2022-09-08] MEDS: ONDANSETRON 4MG 2ML VIAL IV SCH ×2 (05:12→12:00)
[2022-09-08 05:34] LABS: HEMATOCRIT 40.5 % (36.0-47.0); MEAN CORPUSCULAR HEMOGLOBIN 31.6 pg (27.0-33.0); MEAN CORPUSCULAR HGB CONC 32.1 g/dl (32.0-36.5); MEAN CORPUSCULAR VOLUME 98.5 fl (80.0-96.0); PLATELET COUNT, AUTOMATED 238 10^3/uL (150-450); RED BLOOD COUNT 4.11 10^6/uL (4.00-5.40); WHITE BLOOD COUNT 9.4 10^3/uL (4.0-10.0)
[2022-09-08 05:58] LABS: MAGNESIUM LEVEL 1.7 MG/DL (1.8-2.4)
[2022-09-08 06:00] LABS: BLOOD UREA NITROGEN 18 MG/DL (9-23); CALCIUM LEVEL 8.3 MG/DL (8.5-10.1); CARBON DIOXIDE LEVEL 27 MMOL/L (20-31); CHLORIDE LEVEL 102 MMOL/L (98-107); CREATININE FOR GFR 0.76 MG/DL (0.55-1.30); GLOMERULAR FILTRATION RATE > 60.0 (>51); GLUCOSE, FASTING 65 MG/DL (60-100); POTASSIUM SERUM 4.3 MMOL/L (3.5-5.1); SODIUM LEVEL 138 MMOL/L (136-145)
[2022-09-08 06:56] LABS: ATYPICAL LYMPH 3 % (0-5); EOSINOPHILS 1 % (0-3); LYMPHOCYTES 20 % (16-44); MONOCYTES 8 % (0-5); NEUTROPHILS 68 % (28-66); OVALOCYTES 1+; PLATELET ESTIMATE NORMAL (NORMAL)
[2022-09-08 08:00] VITALS: BP 160/84
[2022-09-08] MEDS ORDERED: MAG SULF 1GM/100ML (MAG RUN) 1 GM in IV 1 EA IV ONE (08:00)
[2022-09-08 08:21] VITALS: BP 160/84
[2022-09-08] MEDS: PANTOPRAZOLE 40MG TAB (PROTONIX) PO SCH (08:21)
[2022-09-08] MEDS: METOPROLOL TART 50 MG TAB PO SCH (08:21)
[2022-09-08] MEDS: TIOTROPIUM INHALER/CAPSULE (SPIRIVA) INH SCH (08:31)
[2022-09-08] MEDS ORDERED: DIGOXIN 0.125 MG TAB PO SCH (09:00)
[2022-09-08] MEDS ORDERED: DIGO0.123 PO (11:20)
[2022-09-08] MEDS ORDERED: LOPR1TAB6 PO (11:20)
[2022-09-08] MEDS ORDERED: TIOT18INH INH (11:20)
[2022-09-08] MEDS ORDERED: CEPH500C PO (11:20)
[2022-09-08] MEDS ORDERED: RAME8TAB2 PO (11:20)
[2022-09-08 12:28] VITALS: BP 132/70
[2022-09-08] MEDS ORDERED: INCR1INH INH (14:26)
[2022-09-08] MEDS ORDERED: APIXABAN 5 MG TAB (ELIQUIS) PO SCH (21:00)
== END 2022-09-08 16:20 | disposition home or self-care (01) | DRG 171 ==
LOC: M ED 11:56 → M ED INP 14:52 → ENRESERV 16:11 → M PCU 16:58
PROVIDERS: ADMIT Internal Medicine; ATTEND Internal Medicine
PROC: 02HK3JZ Insertion of Pacemaker Lead into Right Ventricle, Percutaneous Approach (ICD-10-PCS; 2022-09-07)
PROC: 0JH634Z Insertion of Pacemaker, Single Chamber into Chest Subcutaneous Tissue and Fascia, Percutaneous Approach (ICD-10-PCS; principal; 2022-09-07 16:30)
DX: I44.2 Atrioventricular block, complete (principal); I11.0 Hypertensive heart disease with heart failure; I27.20 Pulmonary hypertension, unspecified; I50.9 Heart failure, unspecified; I08.3 Combined rheumatic disorders of mitral, aortic and tricuspid valves; J44.9 Chronic obstructive pulmonary disease, unspecified; Z91.14 Patient's other noncompliance with medication regimen; F17.210 Nicotine dependence, cigarettes, uncomplicated; K64.8 Other hemorrhoids; I48.91 Unspecified atrial fibrillation; I48.92 Unspecified atrial flutter

== ENCOUNTER 2022-10-29 15:04 | Inpatient (IN) | payer OTHER ==
[2022-10-29] VITALS (11 sets, daily range): BP systolic 88–117; BP diastolic 41–89
[~2022-10-29] VITALS: Ht 152.4 cm; Wt 51.2 kg
[~2022-10-29 15:04] MED LIST changes: +ASPI81TA26 PO; +CEPH500C PO; +DIGO0.123 PO; +ELIQ5TAB PO; +INCR1INH INH; +LOPR1TAB6 PO; +PANTOPRAZOLE 40MG VIAL IV SCH; +RAME8TAB2 PO; +TIOT18INH INH
[2022-10-29] MEDS ORDERED: IPRATROPIUM 0.5MG/ALBUTEROL 2.5MG INH SOL UD 3ML (DUONEB) NEB PRN (15:15)
[2022-10-29] MEDS ORDERED: NS 1,000 ML IV ONE ×2 (15:15→17:50)
[2022-10-29] MEDS ORDERED: ASPIRIN 81MG CHEW TABLET PO ONE (15:15)
[2022-10-29] MEDS ORDERED: propofoL 1,000 MG in IV 1 EA IV SCH (16:05)
[2022-10-29] MEDS ORDERED: LIDOCAINE 2% 5ML JELLY UROJET TOP ONE (16:05)
[2022-10-29] MEDS ORDERED: MIDAZOLAM INJ 2MG/2ML VIAL IV STA ×3 (16:13→18:52)
[2022-10-29 16:14] LABS: HEMATOCRIT 50.2 % (36.0-47.0); HEMOGLOBIN 15.4 g/dl (12.0-15.5); MEAN CORPUSCULAR HEMOGLOBIN 30.8 pg (27.0-33.0); MEAN CORPUSCULAR HGB CONC 30.7 g/dl (32.0-36.5); MEAN CORPUSCULAR VOLUME 100.4 fl (80.0-96.0); PLATELET COUNT, AUTOMATED 343 10^3/uL (150-450); WHITE BLOOD COUNT 12.8 10^3/uL (4.0-10.0)
[2022-10-29] MEDS ORDERED: MIDAZOLAM INJ 2MG/2ML VIAL As Ordered ONE (16:14)
[2022-10-29] MEDS ORDERED: NOREPINEPHRINE 4MG IN D5 250ML 4 MG in IV 1 EA IV SCH ×2 (16:20)
[2022-10-29] MEDS ORDERED: EPINEPHrine 1MG/10ML SYRINGE 1.5IN ONE (16:31)
[2022-10-29] MEDS ORDERED: ISOVUE-370 76% 100ML VIAL As Ordered ONE (16:39)
[2022-10-29 16:43] LABS: ATYPICAL LYMPH 3 % (0-5); LYMPHOCYTES 33 % (16-44); MONOCYTES 10 % (0-5); NEUTROPHILS 52 % (28-66); PLASMA CELL 1 % (0-0)
[2022-10-29 16:44] LABS: PLATELET ESTIMATE NORMAL (NORMAL)
[2022-10-29] MEDS ORDERED: cefTRIAXone SOD 2 GM in D5W MINI-BAG PLUS 50 ML IV ONE (16:45)
[2022-10-29 17:19] LABS: INR 1.81; PROTHROMBIN TIME 21.3 SECONDS (12.5-14.5)
[2022-10-29 17:28] LABS: ETHYL ALCOHOL (ETHANOL) 0.003 % (0.000-0.010)
[2022-10-29 17:29] LABS: CK-MB VALUE MASS 1.2 NG/ML (<3.6)
[2022-10-29 17:30] LABS: BILIRUBIN,DIRECT 0.6 MG/DL (<0.4)
[2022-10-29 17:38] LABS: ALBUMIN 1.8 G/DL (3.2-5.2); ALKALINE PHOSPHATASE 74 U/L (46-116); ALT/SGPT 284 U/L (7.0-40); AST/SGOT 418 U/L (<34); BILIRUBIN,TOTAL 1.2 MG/DL (0.3-1.2); BLOOD UREA NITROGEN 22 MG/DL (9-23); CALCIUM LEVEL 6.4 MG/DL (8.5-10.1); CARBON DIOXIDE LEVEL 14 MMOL/L (20-31); CHLORIDE LEVEL 109 MMOL/L (98-107); CPK CREATINE PHOSPHOKINASE 82 U/L (34-145); CREATININE FOR GFR 0.76 MG/DL (0.55-1.30); GLOMERULAR FILTRATION RATE > 60.0 (>51); GLUCOSE, FASTING 28 MG/DL (60-100); MB/CK RELATIVE INDEX 1.46 (< OR =4); POTASSIUM SERUM 5.1 MMOL/L (3.5-5.1); SODIUM LEVEL 142 MMOL/L (136-145)
[2022-10-29] MEDS ORDERED: DEXTROSE 50% 50ML SYRINGE As Ordered ONE (17:43)
[2022-10-29] MEDS ORDERED: DEXTROSE 50% 50ML SYRINGE IV STA (17:44)
[2022-10-29] MEDS ORDERED: INCR1INH INH (17:56)
[2022-10-29] MEDS ORDERED: METO100T5 PO (17:56)
[2022-10-29] MEDS ORDERED: FURO20TA2 PO (17:56)
[2022-10-29] MEDS ORDERED: ELIQ5TAB PO (17:56)
[2022-10-29] MEDS ORDERED: DIGO0.123 PO (17:56)
[2022-10-29] MEDS ORDERED: POTA1TAB23 PO (17:56)
[2022-10-29] MEDS ORDERED: D5W/LR 1,000 ML IV SCH (18:00)
[2022-10-29] MEDS ORDERED: HOME MED LIST COMPLETE! XX SCH (18:00)
[2022-10-29] MEDS ORDERED: ALBUTEROL SULFATE 2.5MG/0.5ML INH NEB SOLN NEB PRN (18:25)
[2022-10-29 19:56] LABS: CK-MB VALUE MASS 2.5 NG/ML (<3.6)
[2022-10-29 19:57] LABS: MB/CK RELATIVE INDEX 2.17 (< OR =4)
[2022-10-29] MEDS ORDERED: FLUID PLACE HOLDER IV ONE (20:15)
[2022-10-29] MEDS ORDERED: VANCOMYCIN HCL IV ONE (20:15)
[2022-10-29] MEDS: MIDAZOLAM INJ 2MG/2ML VIAL IV PRN (20:35)
[2022-10-29 20:36] LABS: APPEARANCE, URINE MANUAL HAZY (CLEAR); COLOR, URINE MANUAL YELLOW (YELLOW)
[2022-10-29 20:37] LABS: SPECIFIC GRAVITY,URINE MANUAL 1.015 (1.002-1.035)
[2022-10-29 20:38] LABS: BILIRUBIN, URINE MANUAL NEGATIVE (NEGATIVE); BLOOD URINE MANUAL POSITIVE (NEGATIVE); GLUCOSE, URINE (UA) MANUAL 1+(100 MG/DL) mg/dL (NEGATIVE); KETONE, URINE MANUAL NEGATIVE (NEGATIVE); LEUKOCYTE ESTERASE, URINE MAN NEGATIVE (NEGATIVE); NITRITE, URINE MANUAL NEGATIVE (NEGATIVE); PROTEIN, URINE MANUAL 3+ mg/dL (NEGATIVE); UROBILINOGEN, URINE MANUAL NORMAL (NORMAL)
[2022-10-29 20:48] LABS: RBC, URINE 40-50 /hpf (0-3)
[2022-10-29 20:49] LABS: BACTERIA, URINE LARGE AMOUNT; MUCUS, URINE MOD AMOUNT (NEGATIVE); SQUAMOUS EPITHELIAL CELL URINE NONE SEEN /hpf (SMALL AMT)
[2022-10-29] MEDS ORDERED: VANCOMYCIN HCL 1,000 MG, VIAL MATE ADAPTER 1 EACH in D5W 250 ML IV ONE (21:00)
[2022-10-29 21:03] LABS: BLOOD UREA NITROGEN 25 MG/DL (9-23); CALCIUM LEVEL 6.5 MG/DL (8.5-10.1); CARBON DIOXIDE LEVEL 19 MMOL/L (20-31); CHLORIDE LEVEL 106 MMOL/L (98-107); CREATININE FOR GFR 0.87 MG/DL (0.55-1.30); GLOMERULAR FILTRATION RATE > 60.0 (>51); GLUCOSE, FASTING 120 MG/DL (60-100); POTASSIUM SERUM 4.1 MMOL/L (3.5-5.1); SODIUM LEVEL 139 MMOL/L (136-145)
[2022-10-29 21:23] LABS: ABG BASE EXCESS -10.3 (-2.0-2.0); ABG HCO3 12.8 MEQ/L (22.0-26.0); ABG O2 SATURATION 99.5 % (95.0-99.0); ABG PARTIAL PRESSURE CO2 22.6 mmHg (35.0-45.0); ABG PARTIAL PRESSURE O2 243.5 mmHg (75.0-100.0); ABG STANDARD HCO3 16.5 MEQ/L (22.0-26.0); ABG TOTAL CO2 13.5 MEQ/L (22.0-29.0)
[2022-10-29 21:52] LABS: CLOSTRIDIUM DIFFICILE PCR NEGATIVE (NEGATIVE)
[2022-10-29] MEDS: HEPARIN SOD (PORCINE) 5000UNITS/ML 1ML VIAL/SYRINGE SC SCH (22:00)
[2022-10-29] MEDS: CHLORHEXIDINE GLUCONATE 0.12 % 15ML UDC (PERIDEX ORAL RINSE) MT SCH (22:00)
[2022-10-29] MEDS: MIDAZOLAM 100MG/100ML-0.9%NACL 100 MG in IV 1 EA IV SCH (23:05)
[2022-10-29] MEDS: CEFEPIME HCL 2 GM in D5W MINI-BAG PLUS 50 ML IV SCH (23:30)
[2022-10-30] VITALS (96 sets, daily range): BP systolic 77–122; BP diastolic 49–75
[2022-10-30] MEDS ORDERED: PANTOPRAZOLE 40MG VIAL IV SCH (01:40)
[2022-10-30 02:01] LABS: HEMATOCRIT 39.7 % (36.0-47.0)
[2022-10-30 02:34] LABS: HEMOGLOBIN 12.5 g/dl (12.0-15.5)
[2022-10-30] MEDS: PANTOPRAZOLE SODIUM 40 MG in D5W 50 ML IV SCH ×5 (03:12→23:37)
[2022-10-30] MEDS: fentaNYL 100 MCG/2 ML INJECTION IV PRN (04:20)
[2022-10-30] MEDS: MIDAZOLAM INJ 2MG/2ML VIAL IV PRN ×3 (04:28→20:41)
[2022-10-30] MEDS: CEFEPIME HCL 2 GM in D5W MINI-BAG PLUS 50 ML IV SCH ×3 (06:01→21:59)
[2022-10-30] MEDS: HEPARIN SOD (PORCINE) 5000UNITS/ML 1ML VIAL/SYRINGE SC SCH (06:01)
[2022-10-30 06:08] LABS: HEMATOCRIT 38.9 % (36.0-47.0); HEMOGLOBIN 12.4 g/dl (12.0-15.5)
[2022-10-30 06:22] LABS: HEMATOCRIT 39.2 % (36.0-47.0); HEMOGLOBIN 12.4 g/dl (12.0-15.5); MEAN CORPUSCULAR HEMOGLOBIN 30.3 pg (27.0-33.0); MEAN CORPUSCULAR HGB CONC 31.6 g/dl (32.0-36.5); MEAN CORPUSCULAR VOLUME 95.8 fl (80.0-96.0); RED BLOOD COUNT 4.09 10^6/uL (4.00-5.40); WHITE BLOOD COUNT 21.8 10^3/uL (4.0-10.0)
[2022-10-30 06:26] LABS: PLATELET COUNT, AUTOMATED 222 10^3/uL (150-450)
[2022-10-30 06:32] LABS: ALKALINE PHOSPHATASE 80 U/L (46-116); ALT/SGPT 420 U/L (7.0-40); AST/SGOT 627 U/L (<34); BILIRUBIN,TOTAL 1.4 MG/DL (0.3-1.2); BLOOD UREA NITROGEN 25 MG/DL (9-23); CALCIUM LEVEL 6.7 MG/DL (8.5-10.1); CARBON DIOXIDE LEVEL 23 MMOL/L (20-31); CHLORIDE LEVEL 108 MMOL/L (98-107); CREATININE FOR GFR 0.89 MG/DL (0.55-1.30); GLOMERULAR FILTRATION RATE > 60.0 (>51); GLUCOSE, FASTING 106 MG/DL (60-100); POTASSIUM SERUM 3.2 MMOL/L (3.5-5.1); SODIUM LEVEL 138 MMOL/L (136-145); TOTAL PROTEIN 4.4 G/DL (5.7-8.2)
[2022-10-30] MEDS: KCL 20MEQ IN 100ML SWI (KRUN) 20 MEQ in IV 1 EA IV SCH ×4 (07:27→08:55)
[2022-10-30 08:06] LABS: ABG BASE EXCESS -2.3 (-2.0-2.0); ABG HCO3 19.5 MEQ/L (22.0-26.0); ABG O2 SATURATION 96.1 % (95.0-99.0); ABG PARTIAL PRESSURE CO2 26.3 mmHg (35.0-45.0); ABG PARTIAL PRESSURE O2 80.2 mmHg (75.0-100.0); ABG STANDARD HCO3 22.6 MEQ/L (22.0-26.0); ABG TOTAL CO2 20.4 MEQ/L (22.0-29.0); ABG pH (ARTERIAL) 7.489 UNITS (7.350-7.450)
[2022-10-30] MEDS: VANCOMYCIN HCL 750 MG, VIAL MATE ADAPTER 1 EACH in D5W 250 ML IV SCH ×2 (09:10→20:04)
[2022-10-30] MEDS: CHLORHEXIDINE GLUCONATE 0.12 % 15ML UDC (PERIDEX ORAL RINSE) MT SCH ×2 (09:11→20:41)
[2022-10-30] MEDS: NOREPINEPHRINE 4MG IN D5 250ML 4 MG in IV 1 EA IV SCH ×4 (09:21→15:50)
[2022-10-30 09:30] LABS: MAGNESIUM LEVEL 1.6 MG/DL (1.8-2.4)
[2022-10-30] MEDS ORDERED: MAG SULF 1GM/100ML (MAG RUN) 1 GM in IV 1 EA IV ONE (11:30)
[2022-10-30 12:10] LABS: HEMATOCRIT 39.4 % (36.0-47.0); HEMOGLOBIN 12.5 g/dl (12.0-15.5)
[2022-10-30] MEDS: MIDAZOLAM 100MG/100ML-0.9%NACL 100 MG in IV 1 EA IV SCH (16:22)
[2022-10-30 16:46] LABS: BLOOD UREA NITROGEN 20 MG/DL (9-23); CALCIUM LEVEL 6.9 MG/DL (8.5-10.1); CARBON DIOXIDE LEVEL 24 MMOL/L (20-31); CHLORIDE LEVEL 108 MMOL/L (98-107); CREATININE FOR GFR 0.89 MG/DL (0.55-1.30); GLOMERULAR FILTRATION RATE > 60.0 (>51); GLUCOSE, FASTING 104 MG/DL (60-100); POTASSIUM SERUM 3.8 MMOL/L (3.5-5.1); SODIUM LEVEL 138 MMOL/L (136-145)
[2022-10-30] MEDS ORDERED: LR 1,000 ML IV ONE (17:00)
[2022-10-31] VITALS (91 sets, daily range): BP systolic 81–135; BP diastolic 50–91
[2022-10-31] MEDS: NOREPINEPHRINE 4MG IN D5 250ML 4 MG in IV 1 EA IV SCH ×8 (00:42→18:48)
[2022-10-31] MEDS: MIDAZOLAM INJ 2MG/2ML VIAL IV PRN ×3 (03:01→21:06)
[2022-10-31] MEDS: fentaNYL 100 MCG/2 ML INJECTION IV PRN (03:15)
[2022-10-31] MEDS: PANTOPRAZOLE SODIUM 40 MG in D5W 50 ML IV SCH ×4 (04:22→17:56)
[2022-10-31] MEDS: CEFEPIME HCL 2 GM in D5W MINI-BAG PLUS 50 ML IV SCH (05:43)
[2022-10-31 05:48] LABS: ABG BASE EXCESS -3.3 (-2.0-2.0); ABG HCO3 19.7 MEQ/L (22.0-26.0); ABG O2 SATURATION 96.3 % (95.0-99.0); ABG PARTIAL PRESSURE CO2 29.9 mmHg (35.0-45.0); ABG STANDARD HCO3 21.7 MEQ/L (22.0-26.0); ABG TOTAL CO2 20.6 MEQ/L (22.0-29.0); ABG pH (ARTERIAL) 7.437 UNITS (7.350-7.450)
[2022-10-31 06:40] LABS: HEMATOCRIT 37.8 % (36.0-47.0); MEAN CORPUSCULAR HEMOGLOBIN 30.7 pg (27.0-33.0); MEAN CORPUSCULAR HGB CONC 31.7 g/dl (32.0-36.5); MEAN CORPUSCULAR VOLUME 96.7 fl (80.0-96.0); PLATELET COUNT, AUTOMATED 212 10^3/uL (150-450); RED BLOOD COUNT 3.91 10^6/uL (4.00-5.40); WHITE BLOOD COUNT 14.4 10^3/uL (4.0-10.0)
[2022-10-31 07:03] LABS: LDH LACTATE DEHYDROGENASE 331 U/L (120-246)
[2022-10-31 07:04] LABS: CPK CREATINE PHOSPHOKINASE 55 U/L (34-145)
[2022-10-31 07:07] LABS: ALBUMIN 1.7 G/DL (3.2-5.2); ALKALINE PHOSPHATASE 69 U/L (46-116); ALT/SGPT 257 U/L (7.0-40); AST/SGOT 132 U/L (<34); BILIRUBIN,TOTAL 1.3 MG/DL (0.3-1.2); BLOOD UREA NITROGEN 17 MG/DL (9-23); CALCIUM LEVEL 6.9 MG/DL (8.5-10.1); CARBON DIOXIDE LEVEL 23 MMOL/L (20-31); CHLORIDE LEVEL 109 MMOL/L (98-107); CHOLESTEROL LEVEL 109 MG/DL (<200); CREATININE FOR GFR 0.71 MG/DL (0.55-1.30); GLOMERULAR FILTRATION RATE > 60.0 (>51); GLUCOSE, FASTING 85 MG/DL (60-100); PHOSPHORUS LEVEL 2.1 MG/DL (2.5-4.9); POTASSIUM SERUM 3.6 MMOL/L (3.5-5.1); SODIUM LEVEL 137 MMOL/L (136-145); TOTAL PROTEIN 4.1 G/DL (5.7-8.2); TRIGLYCERIDES LEVEL 147 MG/DL (<150)
[2022-10-31] MEDS: VANCOMYCIN HCL 750 MG, VIAL MATE ADAPTER 1 EACH in D5W 250 ML IV SCH (07:57)
[2022-10-31] MEDS: CHLORHEXIDINE GLUCONATE 0.12 % 15ML UDC (PERIDEX ORAL RINSE) MT SCH ×2 (08:07→20:15)
[2022-10-31] MEDS ORDERED: DIGOXIN INJ 0.5 MG/2 ML AMP IV STA (09:02)
[2022-10-31] MEDS: dexmedeTOMidine 200 MCG in IV 1 EA IV SCH ×2 (09:46→23:52)
[2022-10-31 12:23] LABS: ABG BASE EXCESS -1.9 (-2.0-2.0); ABG HCO3 21.2 MEQ/L (22.0-26.0); ABG O2 SATURATION 91.7 % (95.0-99.0); ABG PARTIAL PRESSURE CO2 31.3 mmHg (35.0-45.0); ABG STANDARD HCO3 22.8 MEQ/L (22.0-26.0); ABG TOTAL CO2 22.2 MEQ/L (22.0-29.0); ABG pH (ARTERIAL) 7.449 UNITS (7.350-7.450)
[2022-10-31] MEDS: DIGOXIN INJ 0.5 MG/2 ML AMP IV SCH ×3 (13:15→20:15)
[2022-10-31] MEDS ORDERED: FUROSEMIDE 20MG/2ML VIAL IV ONE ×2 (14:00→14:30)
[2022-10-31] MEDS: HEPARIN SOD (PORCINE) 5000UNITS/ML 1ML VIAL/SYRINGE SQ SCH ×2 (14:06→21:06)
[2022-10-31] MEDS ORDERED: cefTRIAXone SOD 1 GM in D5W MINI-BAG PLUS 50 ML IV SCH (15:00)
[2022-10-31 17:30] LABS: MAGNESIUM LEVEL 1.5 MG/DL (1.8-2.4)
[2022-10-31 17:32] LABS: BLOOD UREA NITROGEN 14 MG/DL (9-23); CALCIUM LEVEL 7.1 MG/DL (8.5-10.1); CARBON DIOXIDE LEVEL 28 MMOL/L (20-31); CHLORIDE LEVEL 104 MMOL/L (98-107); CREATININE FOR GFR 0.62 MG/DL (0.55-1.30); GLOMERULAR FILTRATION RATE > 60.0 (>51); GLUCOSE, FASTING 68 MG/DL (60-100); POTASSIUM SERUM 3.1 MMOL/L (3.5-5.1); SODIUM LEVEL 138 MMOL/L (136-145)
[2022-10-31] MEDS: MAG SULF 1GM/100ML (MAG RUN) 1 GM in IV 1 EA IV SCH ×2 (18:35→19:35)
[2022-10-31] MEDS: LEVALBUTEROL 1.25MG 0.5ML CONCENTRATE NEB INH SCH (19:12)
[2022-10-31] MEDS: SODIUM CHLORIDE HYPERTONIC 3% 15ML NEB SOL INH SCH (19:13)
[2022-10-31] MEDS: KCL 20MEQ IN 100ML SWI (KRUN) 20 MEQ in IV 1 EA IV SCH ×4 (21:07→21:40)
[2022-11-01] VITALS (88 sets, daily range): BP systolic 82–116; BP diastolic 49–70
[2022-11-01] MEDS: LEVALBUTEROL 1.25MG 0.5ML CONCENTRATE NEB INH SCH ×4 (01:14→19:17)
[2022-11-01] MEDS: SODIUM CHLORIDE HYPERTONIC 3% 15ML NEB SOL INH SCH ×4 (01:14→19:17)
[2022-11-01] MEDS: fentaNYL 100 MCG/2 ML INJECTION IV PRN (01:54)
[2022-11-01] MEDS: MIDAZOLAM INJ 2MG/2ML VIAL IV PRN ×2 (02:55→23:43)
[2022-11-01 04:38] LABS: HEMATOCRIT 39.6 % (36.0-47.0); HEMOGLOBIN 12.5 g/dl (12.0-15.5); MEAN CORPUSCULAR HEMOGLOBIN 30.4 pg (27.0-33.0); MEAN CORPUSCULAR HGB CONC 31.6 g/dl (32.0-36.5); MEAN CORPUSCULAR VOLUME 96.4 fl (80.0-96.0); PLATELET COUNT, AUTOMATED 177 10^3/uL (150-450); RED BLOOD COUNT 4.11 10^6/uL (4.00-5.40); WHITE BLOOD COUNT 11.2 10^3/uL (4.0-10.0)
[2022-11-01 05:03] LABS: LDH LACTATE DEHYDROGENASE 295 U/L (120-246)
[2022-11-01 05:04] LABS: CPK CREATINE PHOSPHOKINASE 35 U/L (34-145)
[2022-11-01 05:10] LABS: ALBUMIN 1.7 G/DL (3.2-5.2); ALKALINE PHOSPHATASE 77 U/L (46-116); ALT/SGPT 185 U/L (7.0-40); AST/SGOT 50 U/L (<34); BILIRUBIN,TOTAL 1.2 MG/DL (0.3-1.2); BLOOD UREA NITROGEN 13 MG/DL (9-23); CARBON DIOXIDE LEVEL 28 MMOL/L (20-31); CHLORIDE LEVEL 107 MMOL/L (98-107); CHOLESTEROL LEVEL 123 MG/DL (<200); CREATININE FOR GFR 0.56 MG/DL (0.55-1.30); GLOMERULAR FILTRATION RATE > 60.0 (>51); GLUCOSE, FASTING 78 MG/DL (60-100); POTASSIUM SERUM 3.8 MMOL/L (3.5-5.1); SODIUM LEVEL 140 MMOL/L (136-145); TOTAL PROTEIN 4.1 G/DL (5.7-8.2); TRIGLYCERIDES LEVEL 166 MG/DL (<150)
[2022-11-01 05:24] LABS: MAGNESIUM LEVEL 1.8 MG/DL (1.8-2.4)
[2022-11-01] MEDS: HEPARIN SOD (PORCINE) 5000UNITS/ML 1ML VIAL/SYRINGE SQ SCH ×3 (05:38→22:00)
[2022-11-01] MEDS: PANTOPRAZOLE 40MG VIAL IV SCH ×3 (05:38→20:46)
[2022-11-01 05:56] LABS: ABG BASE EXCESS 4.2 (-2.0-2.0); ABG O2 SATURATION 93.6 % (95.0-99.0); ABG PARTIAL PRESSURE CO2 39.4 mmHg (35.0-45.0); ABG PARTIAL PRESSURE O2 63.4 mmHg (75.0-100.0); ABG STANDARD HCO3 28.1 MEQ/L (22.0-26.0); ABG TOTAL CO2 29.2 MEQ/L (22.0-29.0)
[2022-11-01] MEDS: CHLORHEXIDINE GLUCONATE 0.12 % 15ML UDC (PERIDEX ORAL RINSE) MT SCH ×2 (08:05→20:46)
[2022-11-01] MEDS ORDERED: DIGOXIN INJ 0.5 MG/2 ML AMP IV SCH (09:00)
[2022-11-01] MEDS ORDERED: FUROSEMIDE 20MG/2ML VIAL IV ONE (09:10)
[2022-11-01] MEDS ORDERED: DIGOXIN INJ 0.5 MG/2 ML AMP As Ordered ONE (09:13)
[2022-11-01] MEDS: NOREPINEPHRINE 4MG IN D5 250ML 4 MG in IV 1 EA IV SCH ×2 (12:02)
[2022-11-01] MEDS ORDERED: ACETAMINOPHEN TAB 650MG DOSE (2X325MG) PO PRN (14:10)
[2022-11-01] MEDS ORDERED: AMIODARONE HCL 150 MG in IV 1 EA IV ONE (14:30)
[2022-11-01] MEDS: AMIODARONE HCL 360 MG in IV 1 EA IV SCH ×3 (15:09→20:46)
[2022-11-01 16:07] LABS: POTASSIUM SERUM 3.5 MMOL/L (3.5-5.1)
[2022-11-01 16:14] LABS: MAGNESIUM LEVEL 1.6 MG/DL (1.8-2.4)
[2022-11-01] MEDS ORDERED: MAG SULF 1GM/100ML (MAG RUN) 1 GM in IV 1 EA IV ONE (17:00)
[2022-11-02] VITALS (18 sets, daily range): BP systolic 84–143; BP diastolic 51–84
[2022-11-02] MEDS: LEVALBUTEROL 1.25MG 0.5ML CONCENTRATE NEB INH SCH ×2 (01:07→07:33)
[2022-11-02] MEDS: SODIUM CHLORIDE HYPERTONIC 3% 15ML NEB SOL INH SCH ×2 (01:07→07:34)
[2022-11-02] MEDS: MIDAZOLAM INJ 2MG/2ML VIAL IV PRN (04:56)
[2022-11-02 05:25] LABS: HEMATOCRIT 37.4 % (36.0-47.0); HEMOGLOBIN 11.8 g/dl (12.0-15.5); MEAN CORPUSCULAR HEMOGLOBIN 30.5 pg (27.0-33.0); MEAN CORPUSCULAR HGB CONC 31.6 g/dl (32.0-36.5); MEAN CORPUSCULAR VOLUME 96.6 fl (80.0-96.0); PLATELET COUNT, AUTOMATED 147 10^3/uL (150-450); RED BLOOD COUNT 3.87 10^6/uL (4.00-5.40); WHITE BLOOD COUNT 9.3 10^3/uL (4.0-10.0)
[2022-11-02 05:41] LABS: LDH LACTATE DEHYDROGENASE 244 U/L (120-246)
[2022-11-02 05:43] LABS: ALBUMIN 1.6 G/DL (3.2-5.2); ALKALINE PHOSPHATASE 79 U/L (46-116); ALT/SGPT 120 U/L (7.0-40); AST/SGOT 25 U/L (<34); BILIRUBIN,TOTAL 0.8 MG/DL (0.3-1.2); BLOOD UREA NITROGEN 11 MG/DL (9-23); CALCIUM LEVEL 6.5 MG/DL (8.5-10.1); CARBON DIOXIDE LEVEL 31 MMOL/L (20-31); CHLORIDE LEVEL 104 MMOL/L (98-107); CHOLESTEROL LEVEL 111 MG/DL (<200); CPK CREATINE PHOSPHOKINASE 29 U/L (34-145); CREATININE FOR GFR 0.42 MG/DL (0.55-1.30); GLOMERULAR FILTRATION RATE > 60.0 (>51); GLUCOSE, FASTING 114 MG/DL (60-100); POTASSIUM SERUM 3.2 MMOL/L (3.5-5.1); SODIUM LEVEL 139 MMOL/L (136-145); TOTAL PROTEIN 4.3 G/DL (5.7-8.2); TRIGLYCERIDES LEVEL 115 MG/DL (<150)
[2022-11-02 05:47] LABS: ABG BASE EXCESS 3.3 (-2.0-2.0); ABG HCO3 25.9 MEQ/L (22.0-26.0); ABG O2 SATURATION 94.3 % (95.0-99.0); ABG PARTIAL PRESSURE CO2 33.3 mmHg (35.0-45.0); ABG STANDARD HCO3 27.3 MEQ/L (22.0-26.0); ABG TOTAL CO2 26.9 MEQ/L (22.0-29.0); ABG pH (ARTERIAL) 7.509 UNITS (7.350-7.450)
[2022-11-02] MEDS ORDERED: SODIUM CHLORIDE 0.9% INJ 10 ML SYR IV PRN (05:50)
[2022-11-02] MEDS: HEPARIN SOD (PORCINE) 5000UNITS/ML 1ML VIAL/SYRINGE SQ SCH (06:28)
[2022-11-02] MEDS ORDERED: KCL 20MEQ IN 100ML SWI (KRUN) 20 MEQ in IV 1 EA IV ONE ×4 (07:00→15:00)
[2022-11-02] MEDS: NOREPINEPHRINE 4MG IN D5 250ML 4 MG in IV 1 EA IV SCH ×6 (07:12→07:14)
[2022-11-02] MEDS ORDERED: AMIODARONE HCL 360 MG in IV 1 EA IV SCH (08:10)
[2022-11-02] MEDS: AMIODARONE HCL 360 MG in IV 1 EA IV SCH ×2 (08:35→20:18)
[2022-11-02] MEDS: PANTOPRAZOLE 40MG VIAL IV SCH (08:36)
[2022-11-02] MEDS ORDERED: SODIUM CHLORIDE HYPERTONIC 3% 15ML NEB SOL INH PRN (13:20)
[2022-11-02] MEDS ORDERED: LEVALBUTEROL 1.25MG 0.5ML CONCENTRATE NEB INH PRN (13:20)
[2022-11-02] MEDS: TIOTROPIUM INHALER/CAPSULE (SPIRIVA) INH SCH (14:16)
[2022-11-02] MEDS: ENOXAPARIN 60MG/0.6ML SYRINGE (J1650 PER 10MG) SC SCH (14:17)
[2022-11-02] MEDS ORDERED: MAG SULF 1GM/100ML (MAG RUN) 1 GM in IV 1 EA IV ONE (15:00)
[2022-11-02] MEDS ORDERED: FUROSEMIDE 20MG/2ML VIAL IV ONE (15:00)
[2022-11-02] MEDS ORDERED: NEOSPORIN OINT 0.9 GM PKT TOP ONE (16:50)
[2022-11-02] MEDS ORDERED: DIGOXIN 0.125 MG TAB PO SCH (18:00)
[2022-11-02] MEDS ORDERED: DIGOXIN INJ 0.5 MG/2 ML AMP IV SCH (18:00)
[2022-11-02] MEDS ORDERED: AMIODARONE HCL 150 MG in IV 1 EA IV SCH (18:20)
[2022-11-02 19:00] LABS: CK-MB VALUE MASS < 1.0 NG/ML (<3.6)
[2022-11-02 19:02] LABS: CPK CREATINE PHOSPHOKINASE 38 U/L (34-145); MB/CK RELATIVE INDEX 2.63 (< OR =4)
[2022-11-02] MEDS ORDERED: AMIODARONE 200 MG TAB (PACERONE) PO SCH (21:00)
[2022-11-03] VITALS: BP 120/80
[2022-11-03] MEDS: ENOXAPARIN 60MG/0.6ML SYRINGE (J1650 PER 10MG) SC SCH ×2 (02:00→14:33)
[2022-11-03 04:00] VITALS: BP 124/57
[2022-11-03 04:40] LABS: BASO # 0.1 10^3/uL (0.0-0.2); BASO % 0.6 % (0.0-1.0); EOS # 0.1 10^3/uL (0.0-0.5); EOS % 0.9 % (0.0-3.0); HEMOGLOBIN 12.5 g/dl (12.0-15.5); LYMPH # 1.9 10^3/uL (1.5-5.0); LYMPH % 21.4 % (24.0-44.0); MEAN CORPUSCULAR HGB CONC 31.3 g/dl (32.0-36.5); MEAN CORPUSCULAR VOLUME 95.9 fl (80.0-96.0); MONO # 0.8 10^3/uL (0.0-0.8); MONO % 8.8 % (2.0-8.0); NEUTROPHILS % 67.7 % (36.0-66.0); PLATELET COUNT, AUTOMATED 147 10^3/uL (150-450); RED BLOOD COUNT 4.17 10^6/uL (4.00-5.40); WHITE BLOOD COUNT 8.8 10^3/uL (4.0-10.0)
[2022-11-03 05:09] LABS: MAGNESIUM LEVEL 1.7 MG/DL (1.8-2.4)
[2022-11-03 05:48] LABS: ALBUMIN 1.9 G/DL (3.2-5.2); ALKALINE PHOSPHATASE 77 U/L (46-116); ALT/SGPT 100 U/L (7.0-40); AST/SGOT 24 U/L (<34); BILIRUBIN,TOTAL 1.1 MG/DL (0.3-1.2); BLOOD UREA NITROGEN 8 MG/DL (9-23); CALCIUM LEVEL 7.4 MG/DL (8.5-10.1); CARBON DIOXIDE LEVEL 29 MMOL/L (20-31); CHLORIDE LEVEL 104 MMOL/L (98-107); CREATININE FOR GFR 0.39 MG/DL (0.55-1.30); GLOMERULAR FILTRATION RATE > 60.0 (>51); GLUCOSE, FASTING 69 MG/DL (60-100); POTASSIUM SERUM 3.6 MMOL/L (3.5-5.1); SODIUM LEVEL 138 MMOL/L (136-145); TOTAL PROTEIN 4.9 G/DL (5.7-8.2)
[2022-11-03] MEDS: AMIODARONE HCL 360 MG in IV 1 EA IV SCH (06:51)
[2022-11-03] MEDS ORDERED: MAG SULF 1GM/100ML (MAG RUN) 1 GM in IV 1 EA IV ONE (07:00)
[2022-11-03] MEDS: TIOTROPIUM INHALER/CAPSULE (SPIRIVA) INH SCH (07:34)
[2022-11-03 08:00] VITALS: BP 102/76
[2022-11-03] MEDS: PANTOPRAZOLE 40MG VIAL IV SCH (09:49)
[2022-11-03] MEDS ORDERED: VARIBAR PUDDING 40% w/v 230ML TUBE As Ordered ONE (10:51)
[2022-11-03] MEDS ORDERED: VARIBAR NECTAR 40% w/v 240ML SUSP BTL As Ordered ONE (10:52)
[2022-11-03] MEDS ORDERED: E-Z-PAQUE 96% w/w SUSP 176GM BTL As Ordered ONE (10:52)
[2022-11-03 12:00] VITALS: BP 119/77
[2022-11-03] MEDS ORDERED: FUROSEMIDE 20MG/2ML VIAL IV ONE (12:55)
[2022-11-03 13:47] LABS: CK-MB VALUE MASS < 1.0 NG/ML (<3.6)
[2022-11-03 13:51] LABS: CPK CREATINE PHOSPHOKINASE 44 U/L (34-145); MB/CK RELATIVE INDEX 2.27 (< OR =4)
[2022-11-03] MEDS ORDERED: GI COCKTAIL 50ML BTL(HYOSCYAMINE/MAALOX/LIDOCAINE VISCOUS)(1:3:1) PO ONE (14:00)
[2022-11-03] MEDS: DIGOXIN 0.125 MG TAB PO SCH (14:34)
[2022-11-03] MEDS: AMIODARONE 200 MG TAB (PACERONE) PO SCH ×2 (14:34→20:59)
[2022-11-03 15:43] LABS: CK-MB VALUE MASS 1.3 NG/ML (<3.6)
[2022-11-03 15:44] LABS: MB/CK RELATIVE INDEX 2.76 (< OR =4)
[2022-11-03 16:00] VITALS: BP 130/64
[2022-11-03 20:00] VITALS: BP 144/88
[2022-11-04] VITALS (7 sets, daily range): BP systolic 110–144; BP diastolic 72–84
[2022-11-04] MEDS: ENOXAPARIN 60MG/0.6ML SYRINGE (J1650 PER 10MG) SC SCH ×2 (02:51→15:38)
[2022-11-04 04:54] LABS: HEMATOCRIT 41.5 % (36.0-47.0); HEMOGLOBIN 12.7 g/dl (12.0-15.5); MEAN CORPUSCULAR HEMOGLOBIN 29.3 pg (27.0-33.0); MEAN CORPUSCULAR HGB CONC 30.6 g/dl (32.0-36.5); MEAN CORPUSCULAR VOLUME 95.8 fl (80.0-96.0); PLATELET COUNT, AUTOMATED 192 10^3/uL (150-450); RED BLOOD COUNT 4.33 10^6/uL (4.00-5.40); WHITE BLOOD COUNT 8.7 10^3/uL (4.0-10.0)
[2022-11-04 05:13] LABS: MAGNESIUM LEVEL 1.6 MG/DL (1.8-2.4)
[2022-11-04 05:20] LABS: ALBUMIN 2.3 G/DL (3.2-5.2); ALKALINE PHOSPHATASE 85 U/L (46-116); ALT/SGPT 91 U/L (7.0-40); AST/SGOT 23 U/L (<34); BILIRUBIN,TOTAL 1.7 MG/DL (0.3-1.2); BLOOD UREA NITROGEN 7 MG/DL (9-23); CALCIUM LEVEL 7.5 MG/DL (8.5-10.1); CARBON DIOXIDE LEVEL 29 MMOL/L (20-31); CHLORIDE LEVEL 103 MMOL/L (98-107); CREATININE FOR GFR 0.39 MG/DL (0.55-1.30); GLOMERULAR FILTRATION RATE > 60.0 (>51); GLUCOSE, FASTING 86 MG/DL (60-100); POTASSIUM SERUM 3.7 MMOL/L (3.5-5.1); SODIUM LEVEL 139 MMOL/L (136-145); TOTAL PROTEIN 5.4 G/DL (5.7-8.2)
[2022-11-04 05:41] LABS: ATYPICAL LYMPH 6 % (0-5); BASOPHILS 2 % (0-1); EOSINOPHILS 2 % (0-3); LYMPHOCYTES 14 % (16-44); METAMYELOCYTES 1 % (0-0); MONOCYTES 7 % (0-5); MYELOCYTES 3 % (0-0); NEUTROPHILS 61 % (28-66); PLASMA CELL 3 % (0-0); PLATELET ESTIMATE NORMAL (NORMAL)
[2022-11-04 05:42] LABS: ANISOCYTOSIS 1+; HYPOCHROMASIA 1+; OVALOCYTES 1+
[2022-11-04 05:43] LABS: GIANT PLATELETS 1+
[2022-11-04] MEDS ORDERED: RAMELTEON 8 MG TAB (ROZEREM) PO PRN (08:00)
[2022-11-04] MEDS: AMIODARONE 200 MG TAB (PACERONE) PO SCH (08:12)
[2022-11-04] MEDS: PANTOPRAZOLE 40MG VIAL IV SCH (08:12)
[2022-11-04] MEDS: DIGOXIN 0.125 MG TAB PO SCH (08:13)
[2022-11-04] MEDS: MAG SULF 1GM/100ML (MAG RUN) 1 GM in IV 1 EA IV SCH ×2 (08:13→09:02)
[2022-11-04] MEDS: TIOTROPIUM INHALER/CAPSULE (SPIRIVA) INH SCH (08:23)
[2022-11-04] MEDS ORDERED: METOPROLOL TARTRATE 100MG TAB PO SCH (09:00)
[2022-11-04] MEDS ORDERED: LOVE0.4I2 SC (11:05)
[2022-11-04] MEDS ORDERED: PANT40IN4 IV (11:05)
[2022-11-04] MEDS ORDERED: AMIO200T49 PO (11:05)
[2022-11-04] MEDS ORDERED: RAME8TAB2 PO (11:05)
== END 2022-11-04 19:08 | disposition short-term general hospital (02) | DRG 201 ==
LOC: EDBD 15:04 → M ED 16:30 → M ED INP 18:24 → M ICU 19:42
PROVIDERS: ADMIT Internal Medicine Pulmonary Disease; ATTEND Internal Medicine
PROC: 5A1945Z Respiratory Ventilation, 24-96 Consecutive Hours (ICD-10-PCS; principal; 2022-10-29)
DX: I48.19 Other persistent atrial fibrillation (principal); I46.9 Cardiac arrest, cause unspecified; J96.01 Acute respiratory failure with hypoxia; R57.9 Shock, unspecified; J90 Pleural effusion, not elsewhere classified; E87.20 Acidosis, unspecified; K92.2 Gastrointestinal hemorrhage, unspecified; I47.20 Ventricular tachycardia, unspecified; I11.0 Hypertensive heart disease with heart failure; I50.32 Chronic diastolic (congestive) heart failure; I24.8 Other forms of acute ischemic heart disease; I27.22 Pulmonary hypertension due to left heart disease; I08.1 Rheumatic disorders of both mitral and tricuspid valves; J44.9 Chronic obstructive pulmonary disease, unspecified; F12.90 Cannabis use, unspecified, uncomplicated; I08.0 Rheumatic disorders of both mitral and aortic valves; R74.01 Elevation of levels of liver transaminase levels; R91.8 Other nonspecific abnormal finding of lung field; Z72.0 Tobacco use; Z95.0 Presence of cardiac pacemaker; Z79.899 Other long term (current) drug therapy

== ENCOUNTER → 2022-11-18 | Outpatient (REF) | payer OTHER ==
[~2022-11-18] MED LIST changes: +AMIO200T49 PO; +FURO20TA2 PO; +LOVE0.4I2 SC; +METO100T5 PO; +PANT40IN4 IV; -PANTOPRAZOLE 40MG VIAL IV SCH; +POTA1TAB23 PO
[2022-11-18 17:51] LABS: INR 1.17; PROTHROMBIN TIME 15.1 SECONDS (12.5-14.5)
== END ==
LOC: M LABDRAWC 17:10
PROVIDERS: ATTEND Physician Assistant Surgical
DX: I48.0 Paroxysmal atrial fibrillation (principal)

== ENCOUNTER → 2022-11-21 | Outpatient (REF) | payer OTHER ==
[2022-11-21 12:33] LABS: INR 1.02; PROTHROMBIN TIME 13.6 SECONDS (12.5-14.5)
== END ==
LOC: M LABDRAWC 08:38
PROVIDERS: ATTEND Physician Assistant Surgical
DX: I48.0 Paroxysmal atrial fibrillation (principal)

== ENCOUNTER 2022-12-14 12:36 | Inpatient (IN) | payer OTHER ==
[~2022-12-14] VITALS: Ht 152.4 cm; Wt 49.8 kg
[2022-12-14] MEDS ORDERED: FURO20TA2 PO (13:07)
[2022-12-14] MEDS ORDERED: ASPI-226 PO (13:07)
[2022-12-14] MEDS ORDERED: ALPR0.25 PO (13:07)
[2022-12-14] MEDS ORDERED: WARF4TAB51 PO (13:07)
[2022-12-14] MEDS ORDERED: METO1TAB87 PO (13:07)
[2022-12-14] MEDS ORDERED: MAGN400T2 (13:07)
[2022-12-14] MEDS ORDERED: FERR32TA PO (13:07)
[2022-12-14] MEDS ORDERED: ATOR80TA59 (13:07)
[2022-12-14] MEDS ORDERED: DOCU100C16 PO (13:07)
[2022-12-14] MEDS ORDERED: POTA-151 PO (13:07)
[2022-12-14] MEDS ORDERED: METOPROLOL 5 MG/5 ML VIAL IV STA (13:25)
[2022-12-14 13:51] LABS: BASO # 0.1 10^3/uL (0.0-0.2); BASO % 0.8 % (0.0-1.0); EOS # 0.1 10^3/uL (0.0-0.5); EOS % 1.3 % (0.0-3.0); HEMATOCRIT 35.3 % (36.0-47.0); HEMOGLOBIN 10.5 g/dl (12.0-15.5); INR 1.56; LYMPH # 2.4 10^3/uL (1.5-5.0); LYMPH % 30.5 % (24.0-44.0); MEAN CORPUSCULAR HEMOGLOBIN 30.3 pg (27.0-33.0); MEAN CORPUSCULAR HGB CONC 29.7 g/dl (32.0-36.5); MONO # 0.5 10^3/uL (0.0-0.8); MONO % 6.5 % (2.0-8.0); NEUTROPHILS # 4.7 10^3/uL (1.5-8.5); NEUTROPHILS % 60.5 % (36.0-66.0); PLATELET COUNT, AUTOMATED 329 10^3/uL (150-450); RED BLOOD COUNT 3.46 10^6/uL (4.00-5.40); WHITE BLOOD COUNT 7.8 10^3/uL (4.0-10.0)
[2022-12-14 13:53] LABS: PARTIAL THROMBOPLASTIN TIME 33.9 SECONDS (24.8-34.2)
[2022-12-14 14:00] LABS: ALBUMIN 2.9 G/DL (3.2-5.2); ALKALINE PHOSPHATASE 92 U/L (46-116); ALT/SGPT 16 U/L (7.0-40); AST/SGOT 16 U/L (<34); BILIRUBIN,DIRECT 0.3 MG/DL (<0.4); BILIRUBIN,TOTAL 0.6 MG/DL (0.3-1.2); BLOOD UREA NITROGEN 8 MG/DL (9-23); CALCIUM LEVEL 8.2 MG/DL (8.5-10.1); CARBON DIOXIDE LEVEL 26 MMOL/L (20-31); CHLORIDE LEVEL 106 MMOL/L (98-107); CK-MB VALUE MASS 1.7 NG/ML (<3.6); CPK CREATINE PHOSPHOKINASE 40 U/L (34-145); CREATININE FOR GFR 0.37 MG/DL (0.55-1.30); GLOMERULAR FILTRATION RATE > 60.0 (>51); GLUCOSE, FASTING 95 MG/DL (60-100); MB/CK RELATIVE INDEX 4.25 (< OR =4); POTASSIUM SERUM 4.3 MMOL/L (3.5-5.1); SODIUM LEVEL 138 MMOL/L (136-145); TOTAL PROTEIN 6.3 G/DL (5.7-8.2)
[2022-12-14] MEDS ORDERED: METOPROLOL TART 25 MG TABLET PO ONE (14:15)
[2022-12-14] MEDS ORDERED: FUROSEMIDE 40MG/4ML VIAL IV ONE (14:45)
[2022-12-14] MEDS ORDERED: ACET1TAB55 PO (15:26)
[2022-12-14] MEDS ORDERED: ATOR1TAB21 PO (15:26)
[2022-12-14] MEDS ORDERED: METO25TA4 PO (15:26)
[2022-12-14] MEDS ORDERED: HOME MED LIST COMPLETE! XX SCH (15:30)
[2022-12-14] MEDS ORDERED: DIGOXIN INJ 0.5 MG/2 ML AMP IV ONE ×2 (16:20→23:00)
[2022-12-14 16:47] LABS: RSV AMPLIFICATION NEGATIVE (NEGATIVE)
[2022-12-14 16:47] LABS: CK-MB VALUE MASS 1.3 NG/ML (<3.6)
[2022-12-14 16:54] LABS: MB/CK RELATIVE INDEX 1.91 (< OR =4)
[2022-12-14] MEDS ORDERED: AMIODARONE HCL 150 MG in IV 1 EA IV ONE (17:00)
[2022-12-14] MEDS: WARFARIN SOD 5MG TAB PO SCH (17:00)
[2022-12-14] MEDS ORDERED: WARFARIN SOD 2MG TAB PO SCH (17:00)
[2022-12-14 17:44] LABS: MAGNESIUM LEVEL 1.7 MG/DL (1.8-2.4)
[2022-12-14 18:37] VITALS: BP 100/82
[2022-12-14 20:00] VITALS: BP 100/52
[2022-12-14] MEDS: AMIODARONE 200 MG TAB (PACERONE) PO SCH (20:52)
[2022-12-14] MEDS: ALPRAZolam 0.25 MG TAB PO SCH (20:52)
[2022-12-14] MEDS: FUROSEMIDE 20 MG TAB PO SCH (20:52)
[2022-12-14] MEDS: ATORVASTATIN 20 MG TAB PO SCH (20:52)
[2022-12-14] MEDS: FERROUS GLUCONATE 324 MG TAB PO SCH (20:53)
[2022-12-14] MEDS: DOCUSATE SODIUM 100MG CAPSULE PO SCH (20:53)
[2022-12-14] MEDS: METOPROLOL TART 25 MG TABLET PO SCH (21:03)
[2022-12-15] VITALS (7 sets, daily range): BP systolic 93–117; BP diastolic 58–69
[2022-12-15 05:13] LABS: HEMOGLOBIN 10.5 g/dl (12.0-15.5); MEAN CORPUSCULAR HEMOGLOBIN 29.7 pg (27.0-33.0); MEAN CORPUSCULAR VOLUME 98.9 fl (80.0-96.0); PLATELET COUNT, AUTOMATED 343 10^3/uL (150-450); RED BLOOD COUNT 3.54 10^6/uL (4.00-5.40); WHITE BLOOD COUNT 7.9 10^3/uL (4.0-10.0)
[2022-12-15 05:22] LABS: INR 1.44; PROTHROMBIN TIME 17.8 SECONDS (12.5-14.5)
[2022-12-15 05:39] LABS: BLOOD UREA NITROGEN 8 MG/DL (9-23); CALCIUM LEVEL 8.5 MG/DL (8.5-10.1); CARBON DIOXIDE LEVEL 26 MMOL/L (20-31); CHLORIDE LEVEL 103 MMOL/L (98-107); CREATININE FOR GFR 0.47 MG/DL (0.55-1.30); GLOMERULAR FILTRATION RATE > 60.0 (>51); GLUCOSE, FASTING 77 MG/DL (60-100); MAGNESIUM LEVEL 1.6 MG/DL (1.8-2.4); POTASSIUM SERUM 3.6 MMOL/L (3.5-5.1); SODIUM LEVEL 137 MMOL/L (136-145)
[2022-12-15 06:00] LABS: ANISOCYTOSIS 1+; ATYPICAL LYMPH 9 % (0-5); BASOPHILS 2 % (0-1); LYMPHOCYTES 27 % (16-44); MONOCYTES 9 % (0-5); NEUTROPHILS 53 % (28-66); OVALOCYTES 1+; PLATELET ESTIMATE NORMAL (NORMAL)
[2022-12-15] MEDS: TIOTROPIUM INHALER/CAPSULE (SPIRIVA) INH SCH (07:30)
[2022-12-15] MEDS: MAG SULF 1GM/100ML (MAG RUN) 1 GM in IV 1 EA IV SCH ×2 (08:48→10:02)
[2022-12-15] MEDS: FERROUS GLUCONATE 324 MG TAB PO SCH ×2 (08:48→20:51)
[2022-12-15] MEDS: MAGNESIUM OXIDE 400MG TAB (MAG-OX) PO SCH ×2 (08:49→20:50)
[2022-12-15] MEDS: ALPRAZolam 0.25 MG TAB PO SCH ×2 (08:49→20:49)
[2022-12-15] MEDS: FUROSEMIDE 20 MG TAB PO SCH ×2 (08:50→20:52)
[2022-12-15] MEDS: METOPROLOL TART 12.5 MG PER 1/2 TAB PO SCH (08:50)
[2022-12-15] MEDS: ASPIRIN 81MG ENTERIC TABLET PO SCH (08:51)
[2022-12-15] MEDS: AMIODARONE 200 MG TAB (PACERONE) PO SCH ×2 (08:52→20:50)
[2022-12-15] MEDS: DOCUSATE SODIUM 100MG CAPSULE PO SCH ×2 (08:54→20:51)
[2022-12-15] MEDS: WARFARIN SOD 5MG TAB PO SCH (16:20)
[2022-12-15] MEDS: METOPROLOL TART 25 MG TABLET PO SCH (20:50)
[2022-12-15] MEDS: ATORVASTATIN 20 MG TAB PO SCH (20:51)
[2022-12-16] VITALS (7 sets, daily range): BP systolic 98–118; BP diastolic 56–68
[2022-12-16 06:29] LABS: BASO # 0.1 10^3/uL (0.0-0.2); BASO % 0.7 % (0.0-1.0); EOS # 0.2 10^3/uL (0.0-0.5); EOS % 2.1 % (0.0-3.0); HEMATOCRIT 36.4 % (36.0-47.0); HEMOGLOBIN 10.9 g/dl (12.0-15.5); LYMPH # 2.1 10^3/uL (1.5-5.0); LYMPH % 26.4 % (24.0-44.0); MEAN CORPUSCULAR HGB CONC 29.9 g/dl (32.0-36.5); MEAN CORPUSCULAR VOLUME 100.3 fl (80.0-96.0); MONO # 0.6 10^3/uL (0.0-0.8); MONO % 7.3 % (2.0-8.0); NEUTROPHILS # 5.1 10^3/uL (1.5-8.5); NEUTROPHILS % 63.3 % (36.0-66.0); PLATELET COUNT, AUTOMATED 322 10^3/uL (150-450); RED BLOOD COUNT 3.63 10^6/uL (4.00-5.40); WHITE BLOOD COUNT 8.1 10^3/uL (4.0-10.0)
[2022-12-16 06:37] LABS: INR 1.9; PROTHROMBIN TIME 22.1 SECONDS (12.5-14.5)
[2022-12-16 06:57] LABS: BLOOD UREA NITROGEN 8 MG/DL (9-23); CALCIUM LEVEL 8.4 MG/DL (8.5-10.1); CARBON DIOXIDE LEVEL 27 MMOL/L (20-31); CHLORIDE LEVEL 104 MMOL/L (98-107); CREATININE FOR GFR 0.48 MG/DL (0.55-1.30); GLOMERULAR FILTRATION RATE > 60.0 (>51); GLUCOSE, FASTING 82 MG/DL (60-100); MAGNESIUM LEVEL 1.9 MG/DL (1.8-2.4); SODIUM LEVEL 138 MMOL/L (136-145)
[2022-12-16] MEDS: TIOTROPIUM INHALER/CAPSULE (SPIRIVA) INH SCH (07:34)
[2022-12-16] MEDS: METOPROLOL TART 12.5 MG PER 1/2 TAB PO SCH ×2 (09:00→17:17)
[2022-12-16] MEDS ORDERED: FLUBLOK(EGG FREE)(QUAD)INFLUENZA VACC 0.5ML SYRINGE 18YRS & OLDER IM.IMMUN ONE (09:00)
[2022-12-16] MEDS ORDERED: AMIO200T49 PO (09:12)
[2022-12-16] MEDS ORDERED: MAGN400T2 PO (09:12)
[2022-12-16] MEDS ORDERED: JANT5TAB PO (09:12)
[2022-12-16] MEDS: ASPIRIN 81MG ENTERIC TABLET PO SCH (09:35)
[2022-12-16] MEDS: MAGNESIUM OXIDE 400MG TAB (MAG-OX) PO SCH ×2 (09:35→20:51)
[2022-12-16] MEDS: DOCUSATE SODIUM 100MG CAPSULE PO SCH ×2 (09:35→20:51)
[2022-12-16] MEDS: ALPRAZolam 0.25 MG TAB PO SCH ×2 (09:35→20:51)
[2022-12-16] MEDS: AMIODARONE 200 MG TAB (PACERONE) PO SCH ×2 (09:35→20:52)
[2022-12-16] MEDS: FUROSEMIDE 20 MG TAB PO SCH (09:36)
[2022-12-16] MEDS: FERROUS GLUCONATE 324 MG TAB PO SCH ×2 (09:36→20:51)
[2022-12-16] MEDS ORDERED: METOPROLOL TART 12.5 MG PER 1/2 TAB PO ONE (15:00)
[2022-12-16] MEDS: WARFARIN SOD 5MG TAB PO SCH (17:17)
[2022-12-16] MEDS ORDERED: DIGOXIN INJ 0.5 MG/2 ML AMP IV STA (17:58)
[2022-12-16] MEDS: ATORVASTATIN 20 MG TAB PO SCH (20:51)
[2022-12-16] MEDS: DIGOXIN INJ 0.5 MG/2 ML AMP IV SCH (23:13)
[2022-12-17] VITALS: BP 108/70
[2022-12-17] MEDS: METOPROLOL TART 12.5 MG PER 1/2 TAB PO SCH ×2 (00:15→06:40)
[2022-12-17] MEDS: DIGOXIN INJ 0.5 MG/2 ML AMP IV SCH ×2 (03:40→06:40)
[2022-12-17 04:00] VITALS: BP 108/65
[2022-12-17 05:37] LABS: INR 2.83; PROTHROMBIN TIME 30.2 SECONDS (12.5-14.5)
[2022-12-17 05:38] LABS: BASO # 0.1 10^3/uL (0.0-0.2); BASO % 0.8 % (0.0-1.0); EOS # 0.2 10^3/uL (0.0-0.5); EOS % 2.8 % (0.0-3.0); HEMATOCRIT 36.7 % (36.0-47.0); LYMPH # 2.1 10^3/uL (1.5-5.0); LYMPH % 29.6 % (24.0-44.0); MEAN CORPUSCULAR HEMOGLOBIN 30.2 pg (27.0-33.0); MEAN CORPUSCULAR VOLUME 100.8 fl (80.0-96.0); MONO # 0.6 10^3/uL (0.0-0.8); NEUTROPHILS # 4.2 10^3/uL (1.5-8.5); NEUTROPHILS % 58.4 % (36.0-66.0); PLATELET COUNT, AUTOMATED 308 10^3/uL (150-450); RED BLOOD COUNT 3.64 10^6/uL (4.00-5.40); WHITE BLOOD COUNT 7.2 10^3/uL (4.0-10.0)
[2022-12-17 05:57] LABS: BLOOD UREA NITROGEN 8 MG/DL (9-23); CALCIUM LEVEL 8.3 MG/DL (8.5-10.1); CARBON DIOXIDE LEVEL 25 MMOL/L (20-31); CHLORIDE LEVEL 107 MMOL/L (98-107); GLOMERULAR FILTRATION RATE > 60.0 (>51); GLUCOSE, FASTING 79 MG/DL (60-100); MAGNESIUM LEVEL 1.9 MG/DL (1.8-2.4); POTASSIUM SERUM 4.3 MMOL/L (3.5-5.1); SODIUM LEVEL 138 MMOL/L (136-145)
[2022-12-17] MEDS: TIOTROPIUM INHALER/CAPSULE (SPIRIVA) INH SCH (07:33)
[2022-12-17 07:41] VITALS: BP 129/63
[2022-12-17] MEDS ORDERED: FUROSEMIDE 20 MG TAB PO SCH (09:00)
[2022-12-17] MEDS: ASPIRIN 81MG ENTERIC TABLET PO SCH (09:37)
[2022-12-17] MEDS: ALPRAZolam 0.25 MG TAB PO SCH (09:37)
[2022-12-17] MEDS: FERROUS GLUCONATE 324 MG TAB PO SCH (09:37)
[2022-12-17] MEDS: MAGNESIUM OXIDE 400MG TAB (MAG-OX) PO SCH (09:37)
[2022-12-17] MEDS: DOCUSATE SODIUM 100MG CAPSULE PO SCH (09:37)
[2022-12-17] MEDS: AMIODARONE 200 MG TAB (PACERONE) PO SCH (09:38)
[2022-12-17] MEDS ORDERED: WARF-20 PO (11:28)
[2022-12-17] MEDS ORDERED: METO25TA4 PO (11:28)
[2022-12-17] MEDS ORDERED: JANT5TAB PO (11:28)
[2022-12-17 11:49] VITALS: BP 126/66
[2022-12-17] MEDS ORDERED: METOPROLOL TART 12.5 MG PER 1/2 TAB PO SCH (12:00)
[2022-12-17 13:11] VITALS: BP 126/66
[2022-12-17] MEDS ORDERED: WARFARIN SOD 4MG TAB PO SCH (17:00)
[2022-12-17] MEDS ORDERED: WARFARIN SOD 5MG TAB PO SCH ×2 (17:00)
[2022-12-18] MEDS ORDERED: METOPROLOL TART 25 MG TABLET PO SCH
== END 2022-12-17 13:38 | disposition home health service (06) | DRG 201 ==
LOC: M ED 12:36 → M ED INP 16:20 → M PCU 18:33
PROVIDERS: ADMIT Internal Medicine Nephrology; ATTEND Internal Medicine Nephrology
DX: I48.0 Paroxysmal atrial fibrillation (principal); I50.33 Acute on chronic diastolic (congestive) heart failure; J81.1 Chronic pulmonary edema; I27.20 Pulmonary hypertension, unspecified; I11.0 Hypertensive heart disease with heart failure; I49.5 Sick sinus syndrome; Z86.74 Personal history of sudden cardiac arrest; I08.3 Combined rheumatic disorders of mitral, aortic and tricuspid valves; Z79.01 Long term (current) use of anticoagulants; I25.10 Atherosclerotic heart disease of native coronary artery without angina pectoris; I45.2 Bifascicular block; J44.9 Chronic obstructive pulmonary disease, unspecified; I44.39 Other atrioventricular block; D64.9 Anemia, unspecified; I45.10 Unspecified right bundle-branch block; F41.9 Anxiety disorder, unspecified; F17.200 Nicotine dependence, unspecified, uncomplicated; E78.5 Hyperlipidemia, unspecified; Z86.16 Personal history of COVID-19; Z79.82 Long term (current) use of aspirin; Z79.899 Other long term (current) drug therapy; Z95.0 Presence of cardiac pacemaker; Z20.822 Contact with and (suspected) exposure to COVID-19; I48.92 Unspecified atrial flutter

== ENCOUNTER → 2022-12-27 | Outpatient (CLI) | payer OTHER ==
[~2022-12-27] MED LIST changes: +ACET1TAB55 PO; +ALPR0.25 PO; +ASPI-226 PO; +ATOR80TA59; +DOCU100C16 PO; +FERR32TA PO; +JANT5TAB PO; +MAGN400T2; +MAGN400T2 PO; +METO1TAB87 PO; +METO25TA4 PO; +POTA-151 PO; +WARF-20 PO; +WARF4TAB51 PO
== END ==
LOC: M CLY 15:04
PROVIDERS: ATTEND Nurse Practitioner Family
DX: I50.32 Chronic diastolic (congestive) heart failure (principal)

== ENCOUNTER → 2023-02-01 | Outpatient (REF) | payer OTHER ==
[2023-02-01 17:23] LABS: HEMATOCRIT 41.3 % (36.0-47.0); HEMOGLOBIN 12.8 g/dl (12.0-15.5); MEAN CORPUSCULAR VOLUME 93.4 fl (80.0-96.0); PLATELET COUNT, AUTOMATED 340 10^3/uL (150-450); RED BLOOD COUNT 4.42 10^6/uL (4.00-5.40); WHITE BLOOD COUNT 7.1 10^3/uL (4.0-10.0)
[2023-02-01 17:53] LABS: BLOOD UREA NITROGEN 11 MG/DL (9-23); CALCIUM LEVEL 7.8 MG/DL (8.5-10.1); CARBON DIOXIDE LEVEL 26 MMOL/L (20-31); CHLORIDE LEVEL 107 MMOL/L (98-107); CREATININE FOR GFR 0.51 MG/DL (0.55-1.30); GLOMERULAR FILTRATION RATE > 60.0 (>51); GLUCOSE, FASTING 89 MG/DL (60-100); POTASSIUM SERUM 4.3 MMOL/L (3.5-5.1); SODIUM LEVEL 138 MMOL/L (136-145)
[2023-02-01 17:56] LABS: THYROID STIMULATING HORMONE 0.638 uIU/ML (0.55-4.78)
== END ==
LOC: M LAB REF 16:36
PROVIDERS: ATTEND Internal Medicine Cardiovascular Disease
DX: I48.0 Paroxysmal atrial fibrillation (principal)

== ENCOUNTER 2023-04-22 20:09 | Emergency (ER) | payer OTHER ==
[~2023-04-22] VITALS: Ht 152.4 cm; Wt 47.7 kg
[2023-04-22] MEDS ORDERED: OXYMETAZOLINE 0.05% NASAL SPRAY (AFRIN) ONE (20:15)
[2023-04-22] MEDS ORDERED: SILVER NITRATE APPLICATOR (1 = QTY 10) TOP ONE ×2 (20:20→21:00)
[2023-04-22 20:22] VITALS: TEMP 97.6
[2023-04-22 20:54] LABS: BASO # 0.1 10^3/uL (0.0-0.2); BASO % 1.1 % (0.0-1.0); EOS # 0.2 10^3/uL (0.0-0.5); EOS % 2.2 % (0.0-3.0); HEMATOCRIT 37.1 % (36.0-47.0); HEMOGLOBIN 12.3 g/dl (12.0-15.5); LYMPH # 2.4 10^3/uL (1.5-5.0); LYMPH % 28.7 % (24.0-44.0); MEAN CORPUSCULAR HEMOGLOBIN 29.7 pg (27.0-33.0); MEAN CORPUSCULAR HGB CONC 33.2 g/dl (32.0-36.5); MEAN CORPUSCULAR VOLUME 89.6 fl (80.0-96.0); MONO # 0.5 10^3/uL (0.0-0.8); MONO % 6.3 % (2.0-8.0); NEUTROPHILS # 5.2 10^3/uL (1.5-8.5); NEUTROPHILS % 61.5 % (36.0-66.0); PLATELET COUNT, AUTOMATED 220 10^3/uL (150-450); RED BLOOD COUNT 4.14 10^6/uL (4.00-5.40); WHITE BLOOD COUNT 8.5 10^3/uL (4.0-10.0)
[2023-04-22 21:05] LABS: INR 2.19; PROTHROMBIN TIME 24.7 SECONDS (12.5-14.5)
[2023-04-22 21:06] LABS: PARTIAL THROMBOPLASTIN TIME 36.5 SECONDS (24.8-34.2)
[2023-04-22 22:15] VITALS: BP 128/82; O2SAT 98
== END 2023-04-22 22:27 | disposition home or self-care (01) ==
LOC: M ED 20:09 → EDBD 20:09 → M ED 22:27
DX: R04.0 Epistaxis (principal); J44.9 Chronic obstructive pulmonary disease, unspecified; Z86.79 Personal history of other diseases of the circulatory system; Z79.01 Long term (current) use of anticoagulants; Z79.82 Long term (current) use of aspirin; Z79.899 Other long term (current) drug therapy

== ENCOUNTER 2023-05-03 16:34 | Inpatient (IN) | payer OTHER ==
[~2023-05-03] VITALS: Ht 152.4 cm; Wt 51.6 kg
[2023-05-03] MEDS ORDERED: FAMO-142 PO (17:01)
[2023-05-03] MEDS ORDERED: ZOLO25TA PO (17:01)
[2023-05-03 17:33] LABS: BASO # 0.1 10^3/uL (0.0-0.2); BASO % 0.8 % (0.0-1.0); EOS # 0.1 10^3/uL (0.0-0.5); EOS % 1.4 % (0.0-3.0); HEMOGLOBIN 12.4 g/dl (12.0-15.5); LYMPH # 2.3 10^3/uL (1.5-5.0); LYMPH % 28.8 % (24.0-44.0); MEAN CORPUSCULAR HEMOGLOBIN 29.6 pg (27.0-33.0); MEAN CORPUSCULAR HGB CONC 31.8 g/dl (32.0-36.5); MEAN CORPUSCULAR VOLUME 93.1 fl (80.0-96.0); MONO # 0.4 10^3/uL (0.0-0.8); MONO % 5.3 % (2.0-8.0); NEUTROPHILS # 5.1 10^3/uL (1.5-8.5); NEUTROPHILS % 63.6 % (36.0-66.0); PLATELET COUNT, AUTOMATED 235 10^3/uL (150-450); RED BLOOD COUNT 4.19 10^6/uL (4.00-5.40); WHITE BLOOD COUNT 7.9 10^3/uL (4.0-10.0)
[2023-05-03 17:59] LABS: CK-MB VALUE MASS 2.6 NG/ML (<3.6)
[2023-05-03 18:00] LABS: BLOOD UREA NITROGEN 6 MG/DL (9-23); CALCIUM LEVEL 8.1 MG/DL (8.5-10.1); CARBON DIOXIDE LEVEL 25 MMOL/L (20-31); CHLORIDE LEVEL 108 MMOL/L (98-107); CPK CREATINE PHOSPHOKINASE 110 U/L (34-145); CREATININE FOR GFR 0.59 MG/DL (0.55-1.30); GLOMERULAR FILTRATION RATE > 60.0 (>51); GLUCOSE, FASTING 78 MG/DL (60-100); MB/CK RELATIVE INDEX 2.36 (< OR =4); POTASSIUM SERUM 3.4 MMOL/L (3.5-5.1); SODIUM LEVEL 142 MMOL/L (136-145)
[2023-05-03] MEDS: METOPROLOL 5 MG/5 ML VIAL IV SCH ×3 (18:05→20:17)
[2023-05-03] MEDS ORDERED: POTASSIUM CHLORIDE 10MEQ SR TABLET PO ONE (18:05)
[2023-05-03 18:31] LABS: MAGNESIUM LEVEL 1.6 MG/DL (1.8-2.4); PHOSPHORUS LEVEL 3.7 MG/DL (2.5-4.9)
[2023-05-03 18:33] LABS: THYROID STIMULATING HORMONE 1.849 uIU/ML (0.55-4.78)
[2023-05-03 18:34] LABS: FREE T4 1.45 NG/DL (0.89-1.76)
[2023-05-03 19:02] LABS: CK-MB VALUE MASS 2.3 NG/ML (<3.6)
[2023-05-03 19:03] LABS: MB/CK RELATIVE INDEX 2.19 (< OR =4)
[2023-05-03 19:35] LABS: INR 2.04; PROTHROMBIN TIME 23.4 SECONDS (12.5-14.5)
[2023-05-03 19:36] LABS: PARTIAL THROMBOPLASTIN TIME 36.3 SECONDS (24.8-34.2)
[2023-05-03] MEDS ORDERED: FUROSEMIDE 40MG/4ML VIAL IV ONE (20:15)
[2023-05-03 21:08] LABS: RSV AMPLIFICATION NEGATIVE (NEGATIVE)
[2023-05-03] MEDS ORDERED: WARF-23 PO (21:19)
[2023-05-03] MEDS ORDERED: ATOR80TA59 PO (21:19)
[2023-05-03] MEDS ORDERED: ALPR0.5T3 PO (21:19)
[2023-05-03] MEDS ORDERED: AMIO200T37 PO (21:20)
[2023-05-03] MEDS ORDERED: med rec comment (21:24)
[2023-05-03] MEDS ORDERED: HOME MED LIST COMPLETE! XX SCH (21:25)
[2023-05-03] MEDS ORDERED: ACETAMINOPHEN TAB 650MG DOSE (2X325MG) PO PRN (22:00)
[2023-05-03 23:04] VITALS: BP 112/77; TEMP 97.7; O2SAT 96
[2023-05-03] MEDS: METOPROLOL TART 25 MG TABLET PO SCH (23:39)
[2023-05-03] MEDS: SERTRALINE HCL 25 MG TABLET PO SCH (23:39)
[2023-05-03] MEDS: FERROUS GLUCONATE 324 MG TAB PO SCH (23:39)
[2023-05-03] MEDS: ALPRAZolam 0.5 MG TAB PO SCH (23:39)
[2023-05-03] MEDS: ATORVASTATIN 20 MG TAB PO SCH (23:40)
[2023-05-03] MEDS: WARFARIN SOD 5MG TAB PO SCH (23:40)
[2023-05-03] MEDS: MAG SULF 1GM/100ML (MAG RUN) 1 GM in IV 1 EA IV SCH (23:40)
[2023-05-04 00:11] VITALS: BP 100/62; TEMP 97.7; O2SAT 97
[2023-05-04] MEDS: MAG SULF 1GM/100ML (MAG RUN) 1 GM in IV 1 EA IV SCH (01:33)
[2023-05-04 04:25] VITALS: BP 114/77; TEMP 97.2; O2SAT 98
[2023-05-04 05:17] LABS: HEMATOCRIT 40.5 % (36.0-47.0); HEMOGLOBIN 13.2 g/dl (12.0-15.5); MEAN CORPUSCULAR HEMOGLOBIN 30.1 pg (27.0-33.0); MEAN CORPUSCULAR HGB CONC 32.6 g/dl (32.0-36.5); MEAN CORPUSCULAR VOLUME 92.3 fl (80.0-96.0); PLATELET COUNT, AUTOMATED 230 10^3/uL (150-450); RED BLOOD COUNT 4.39 10^6/uL (4.00-5.40); WHITE BLOOD COUNT 6.5 10^3/uL (4.0-10.0)
[2023-05-04 05:50] LABS: BLOOD UREA NITROGEN 5 MG/DL (9-23); CALCIUM LEVEL 8.1 MG/DL (8.5-10.1); CARBON DIOXIDE LEVEL 24 MMOL/L (20-31); CHLORIDE LEVEL 109 MMOL/L (98-107); CREATININE FOR GFR 0.48 MG/DL (0.55-1.30); GLOMERULAR FILTRATION RATE > 60.0 (>51); GLUCOSE, FASTING 80 MG/DL (60-100); MAGNESIUM LEVEL 2.4 MG/DL (1.8-2.4); POTASSIUM SERUM 3.9 MMOL/L (3.5-5.1); SODIUM LEVEL 142 MMOL/L (136-145)
[2023-05-04 06:52] LABS: INR 1.78
[2023-05-04 08:00] VITALS: BP 125/76; TEMP 98.4; O2SAT 96
[2023-05-04] MEDS: ASPIRIN 81MG ENTERIC TABLET PO SCH (08:28)
[2023-05-04] MEDS: ALPRAZolam 0.5 MG TAB PO SCH ×2 (08:28→20:09)
[2023-05-04] MEDS: POTASSIUM CHLORIDE 10MEQ SR TABLET PO SCH (08:28)
[2023-05-04] MEDS: FERROUS GLUCONATE 324 MG TAB PO SCH ×2 (08:28→20:09)
[2023-05-04] MEDS: FUROSEMIDE 20 MG TAB PO SCH (08:29)
[2023-05-04] MEDS: METOPROLOL TART 25 MG TABLET PO SCH ×3 (08:29→17:28)
[2023-05-04] MEDS: AMIODARONE 200 MG TAB (PACERONE) PO SCH (08:29)
[2023-05-04] MEDS ORDERED: LEVALBUTEROL HFA 45MCG/ACT 15GM INHALER INH PRN (10:15)
[2023-05-04 12:09] VITALS: BP 106/62; TEMP 98.6; O2SAT 98
[2023-05-04 15:32] VITALS: BP 100/58; TEMP 97.6; O2SAT 97
[2023-05-04] MEDS ORDERED: WARFARIN SOD 3MG TAB PO ONE (17:00)
[2023-05-04] MEDS: WARFARIN SOD 5MG TAB PO SCH (18:38)
[2023-05-04] MEDS: ATORVASTATIN 20 MG TAB PO SCH (20:09)
[2023-05-04] MEDS: SERTRALINE HCL 25 MG TABLET PO SCH (20:09)
[2023-05-04 23:46] VITALS: BP 90/60; TEMP 98; O2SAT 93
[2023-05-05] VITALS (7 sets, daily range): BP systolic 100–140; BP diastolic 50–84; TEMP 96.4–98.2; O2SAT 97–100
[2023-05-05] MEDS: METOPROLOL TART 25 MG TABLET PO SCH ×4 (05:46→21:15)
[2023-05-05 06:36] LABS: BASO # 0.1 10^3/uL (0.0-0.2); BASO % 0.9 % (0.0-1.0); EOS # 0.1 10^3/uL (0.0-0.5); EOS % 1.7 % (0.0-3.0); HEMATOCRIT 39.5 % (36.0-47.0); HEMOGLOBIN 12.9 g/dl (12.0-15.5); LYMPH # 1.9 10^3/uL (1.5-5.0); LYMPH % 24.2 % (24.0-44.0); MEAN CORPUSCULAR HEMOGLOBIN 30.4 pg (27.0-33.0); MEAN CORPUSCULAR HGB CONC 32.7 g/dl (32.0-36.5); MEAN CORPUSCULAR VOLUME 92.9 fl (80.0-96.0); MONO # 0.5 10^3/uL (0.0-0.8); NEUTROPHILS # 5.1 10^3/uL (1.5-8.5); NEUTROPHILS % 65.9 % (36.0-66.0); PLATELET COUNT, AUTOMATED 224 10^3/uL (150-450); RED BLOOD COUNT 4.25 10^6/uL (4.00-5.40); WHITE BLOOD COUNT 7.7 10^3/uL (4.0-10.0)
[2023-05-05 06:51] LABS: INR 2.2; PROTHROMBIN TIME 24.8 SECONDS (12.5-14.5)
[2023-05-05 07:10] LABS: BLOOD UREA NITROGEN 12 MG/DL (9-23); CALCIUM LEVEL 8.4 MG/DL (8.5-10.1); CARBON DIOXIDE LEVEL 24 MMOL/L (20-31); CHLORIDE LEVEL 109 MMOL/L (98-107); GLOMERULAR FILTRATION RATE > 60.0 (>51); GLUCOSE, FASTING 77 MG/DL (60-100); MAGNESIUM LEVEL 1.8 MG/DL (1.8-2.4); POTASSIUM SERUM 4.1 MMOL/L (3.5-5.1); SODIUM LEVEL 139 MMOL/L (136-145)
[2023-05-05] MEDS: TIOTROPIUM INHALER/CAPSULE (SPIRIVA) INH SCH ×2 (08:00→09:06)
[2023-05-05] MEDS ORDERED: METOPROLOL TART 25 MG TABLET PO ONE (08:40)
[2023-05-05] MEDS: FUROSEMIDE 20 MG TAB PO SCH (08:51)
[2023-05-05] MEDS: FERROUS GLUCONATE 324 MG TAB PO SCH ×2 (08:51→21:15)
[2023-05-05] MEDS: ASPIRIN 81MG ENTERIC TABLET PO SCH (08:51)
[2023-05-05] MEDS: POTASSIUM CHLORIDE 10MEQ SR TABLET PO SCH (08:52)
[2023-05-05] MEDS: ALPRAZolam 0.5 MG TAB PO SCH ×2 (08:52→21:14)
[2023-05-05] MEDS: AMIODARONE 200 MG TAB (PACERONE) PO SCH (08:52)
[2023-05-05] MEDS: WARFARIN SOD 5MG TAB PO SCH (17:18)
[2023-05-05] MEDS: SERTRALINE HCL 25 MG TABLET PO SCH (21:14)
[2023-05-05] MEDS: ATORVASTATIN 20 MG TAB PO SCH (21:15)
[2023-05-05] MEDS ORDERED: diphenhydrAMINE 25MG CAP PO ONE (22:00)
[2023-05-06] VITALS: BP 116/80; TEMP 97.5; O2SAT 99
[2023-05-06 03:33] VITALS: BP 118/74; TEMP 96.8; O2SAT 96
[2023-05-06] MEDS: METOPROLOL TART 25 MG TABLET PO SCH ×2 (05:41→13:08)
[2023-05-06 07:59] VITALS: BP 118/80; TEMP 97.5; O2SAT 100
[2023-05-06] MEDS: TIOTROPIUM INHALER/CAPSULE (SPIRIVA) INH SCH (08:34)
[2023-05-06] MEDS: AMIODARONE 200 MG TAB (PACERONE) PO SCH (08:52)
[2023-05-06] MEDS: ALPRAZolam 0.5 MG TAB PO SCH (08:52)
[2023-05-06] MEDS: ASPIRIN 81MG ENTERIC TABLET PO SCH (08:52)
[2023-05-06] MEDS: POTASSIUM CHLORIDE 10MEQ SR TABLET PO SCH (08:52)
[2023-05-06] MEDS: FUROSEMIDE 20 MG TAB PO SCH (08:53)
[2023-05-06] MEDS: FERROUS GLUCONATE 324 MG TAB PO SCH (08:53)
[2023-05-06] MEDS ORDERED: diphenhydrAMINE CREAM 30GM TOP PRN (10:50)
[2023-05-06 11:00] VITALS: BP 98/72; TEMP 98; O2SAT 99
[2023-05-06] MEDS ORDERED: METO25TA4 PO (12:55)
[2023-05-06 13:08] VITALS: BP 110/80
== END 2023-05-06 16:48 | disposition left against medical advice (07) | DRG 201 ==
LOC: M ED 16:34 → EDBD 16:34 → M ED INP 21:19 → M PCU 22:51
PROVIDERS: ADMIT Family Medicine; ATTEND Internal Medicine
DX: I48.91 Unspecified atrial fibrillation (principal); I11.0 Hypertensive heart disease with heart failure; I27.20 Pulmonary hypertension, unspecified; I50.32 Chronic diastolic (congestive) heart failure; Z95.1 Presence of aortocoronary bypass graft; E87.6 Hypokalemia; I25.10 Atherosclerotic heart disease of native coronary artery without angina pectoris; I73.9 Peripheral vascular disease, unspecified; J44.9 Chronic obstructive pulmonary disease, unspecified; Z79.01 Long term (current) use of anticoagulants; F41.9 Anxiety disorder, unspecified; F32.A Depression, unspecified; Z79.899 Other long term (current) drug therapy; Z79.82 Long term (current) use of aspirin

== ENCOUNTER → 2023-05-17 | Outpatient (REF) | payer OTHER ==
[~2023-05-17] MED LIST changes: +ALPR0.5T3 PO; +AMIO200T37 PO; +ATOR80TA59 PO; +FAMO-142 PO; +WARF-23 PO; +ZOLO25TA PO; +med rec comment
[2023-05-17 17:13] LABS: BASO # 0.1 10^3/uL (0.0-0.2); EOS # 0.2 10^3/uL (0.0-0.5); EOS % 2.8 % (0.0-3.0); HEMATOCRIT 44.5 % (36.0-47.0); HEMOGLOBIN 14.1 g/dl (12.0-15.5); LYMPH % 29.8 % (24.0-44.0); MEAN CORPUSCULAR HEMOGLOBIN 30.6 pg (27.0-33.0); MEAN CORPUSCULAR HGB CONC 31.7 g/dl (32.0-36.5); MEAN CORPUSCULAR VOLUME 96.5 fl (80.0-96.0); MONO # 0.5 10^3/uL (0.0-0.8); MONO % 7.5 % (2.0-8.0); NEUTROPHILS # 3.9 10^3/uL (1.5-8.5); NEUTROPHILS % 58.6 % (36.0-66.0); PLATELET COUNT, AUTOMATED 257 10^3/uL (150-450); RED BLOOD COUNT 4.61 10^6/uL (4.00-5.40); WHITE BLOOD COUNT 6.7 10^3/uL (4.0-10.0)
[2023-05-17 17:19] LABS: TOTAL IRON BINDING CAPACITY 359 UG/DL (250-425)
[2023-05-17 17:21] LABS: ALKALINE PHOSPHATASE 121 U/L (46-116); ALT/SGPT 70 U/L (7.0-40); AST/SGOT 33 U/L (<34); BILIRUBIN,TOTAL 0.6 MG/DL (0.3-1.2); BLOOD UREA NITROGEN 14 MG/DL (9-23); CALCIUM LEVEL 9.1 MG/DL (8.5-10.1); CARBON DIOXIDE LEVEL 27 MMOL/L (20-31); CHLORIDE LEVEL 105 MMOL/L (98-107); CHOLESTEROL LEVEL 104 MG/DL (<200); CHOLESTEROL RISK RATIO 2.15 (<5); GLOMERULAR FILTRATION RATE > 60.0 (>51); GLUCOSE, FASTING 82 MG/DL (60-100); HDL CHOLESTEROL 48.3 MG/DL (>40); IRON (FE) 71 UG/DL (50-170); LDL CHOLESTEROL 46.1 MG/DL (<100); NON-HDL-C 55.7 MG/DL; PERCENT SATURATION 19.8 % (13.2-45.0); SODIUM LEVEL 141 MMOL/L (136-145); TOTAL PROTEIN 7.4 G/DL (5.7-8.2); TRIGLYCERIDES LEVEL 48 MG/DL (<150)
[2023-05-17 17:22] LABS: FERRITIN 76.2 NG/ML (7.3-270.7)
== END ==
LOC: M SFHCCLAY 09:32
PROVIDERS: ATTEND Nurse Practitioner Family
DX: F32.A Depression, unspecified (principal); I48.0 Paroxysmal atrial fibrillation; I25.810 Atherosclerosis of coronary artery bypass graft(s) without angina pectoris; I50.32 Chronic diastolic (congestive) heart failure; F41.9 Anxiety disorder, unspecified; D50.9 Iron deficiency anemia, unspecified; E78.5 Hyperlipidemia, unspecified; J44.9 Chronic obstructive pulmonary disease, unspecified; I11.0 Hypertensive heart disease with heart failure

== ENCOUNTER → 2023-08-21 | Outpatient (CLI) | payer OTHER ==
[2023-08-21 12:31] LABS: BASO # 0.1 10^3/uL (0.0-0.2); BASO % 0.8 % (0.0-1.0); EOS # 0.2 10^3/uL (0.0-0.5); EOS % 1.9 % (0.0-3.0); HEMOGLOBIN 13.5 g/dl (12.0-15.5); LYMPH # 1.9 10^3/uL (1.5-5.0); LYMPH % 24.1 % (24.0-44.0); MEAN CORPUSCULAR HGB CONC 32.1 g/dl (32.0-36.5); MEAN CORPUSCULAR VOLUME 99.5 fl (80.0-96.0); MONO # 0.5 10^3/uL (0.0-0.8); MONO % 6.4 % (2.0-8.0); NEUTROPHILS # 5.2 10^3/uL (1.5-8.5); NEUTROPHILS % 66.4 % (36.0-66.0); PLATELET COUNT, AUTOMATED 260 10^3/uL (150-450); RED BLOOD COUNT 4.22 10^6/uL (4.00-5.40); WHITE BLOOD COUNT 7.8 10^3/uL (4.0-10.0)
[2023-08-21 12:59] LABS: ALBUMIN 3.2 G/DL (3.2-5.2); ALKALINE PHOSPHATASE 95 U/L (46-116); ALT/SGPT 23 U/L (7.0-40); AST/SGOT 19 U/L (<34); BILIRUBIN,TOTAL 0.4 MG/DL (0.3-1.2); BLOOD UREA NITROGEN 8 MG/DL (9-23); CALCIUM LEVEL 8.2 MG/DL (8.5-10.1); CARBON DIOXIDE LEVEL 27 MMOL/L (20-31); CHLORIDE LEVEL 111 MMOL/L (98-107); CREATININE FOR GFR 0.58 MG/DL (0.55-1.30); GLOMERULAR FILTRATION RATE > 60.0 (>51); GLUCOSE, FASTING 86 MG/DL (60-100); SODIUM LEVEL 145 MMOL/L (136-145); TOTAL PROTEIN 6.5 G/DL (5.7-8.2)
== END ==
LOC: M CLY 08:28
PROVIDERS: ATTEND Internal Medicine Cardiovascular Disease
DX: I48.0 Paroxysmal atrial fibrillation (principal); R06.02 Shortness of breath; Z79.01 Long term (current) use of anticoagulants

== ENCOUNTER → 2024-05-03 | Outpatient (REF) | payer OTHER ==
[~2024-05-03] MED LIST changes: +DOXY-440 PO; -DOXY-444 PO
== END ==
LOC: M SFHCCLAY 11:32
PROVIDERS: ATTEND Nurse Practitioner Family
DX: I25.810 Atherosclerosis of coronary artery bypass graft(s) without angina pectoris (principal); I10 Essential (primary) hypertension; E78.5 Hyperlipidemia, unspecified; J44.9 Chronic obstructive pulmonary disease, unspecified; D50.9 Iron deficiency anemia, unspecified; I50.32 Chronic diastolic (congestive) heart failure

== ENCOUNTER → 2024-06-17 | Outpatient (REF) | payer OTHER ==
[2024-06-17 19:28] LABS: BASO # 0.1 10^3/uL (0.0-0.2); BASO % 0.8 % (0.0-1.0); EOS # 0.2 10^3/uL (0.0-0.5); EOS % 1.9 % (0.0-3.0); HEMATOCRIT 45.1 % (36.0-47.0); HEMOGLOBIN 14.5 g/dl (12.0-15.5); LYMPH # 2.6 10^3/uL (1.5-5.0); LYMPH % 25.6 % (24.0-44.0); MEAN CORPUSCULAR HEMOGLOBIN 31.9 pg (27.0-33.0); MEAN CORPUSCULAR HGB CONC 32.2 g/dl (32.0-36.5); MEAN CORPUSCULAR VOLUME 99.1 fl (80.0-96.0); MONO # 0.7 10^3/uL (0.0-0.8); MONO % 7.3 % (2.0-8.0); NEUTROPHILS # 6.5 10^3/uL (1.5-8.5); NEUTROPHILS % 64.1 % (36.0-66.0); PLATELET COUNT, AUTOMATED 277 10^3/uL (150-450); RED BLOOD COUNT 4.55 10^6/uL (4.00-5.40); WHITE BLOOD COUNT 10.1 10^3/uL (4.0-10.0)
[2024-06-17 19:50] LABS: ALBUMIN 3.6 G/DL (3.2-5.2); ALKALINE PHOSPHATASE 95 U/L (46-116); ALT/SGPT 26 U/L (7.0-40); AST/SGOT 18 U/L (<34); BILIRUBIN,TOTAL 0.3 MG/DL (0.3-1.2); BLOOD UREA NITROGEN 9 MG/DL (9-23); CALCIUM LEVEL 9.7 MG/DL (8.5-10.1); CARBON DIOXIDE LEVEL 29 MMOL/L (20-31); CHLORIDE LEVEL 110 MMOL/L (98-107); CREATININE FOR GFR 0.47 MG/DL (0.55-1.30); GLOMERULAR FILTRATION RATE > 60.0 (>51); GLUCOSE, FASTING 86 MG/DL (60-100); POTASSIUM SERUM 4.3 MMOL/L (3.5-5.1); SODIUM LEVEL 140 MMOL/L (136-145); THYROID STIMULATING HORMONE 0.547 uIU/ML (0.55-4.78); TOTAL PROTEIN 6.6 G/DL (5.7-8.2)
[2024-06-17 19:51] LABS: FREE T4 1.27 NG/DL (0.89-1.76)
[2024-06-22 12:42] LABS: ACETONE SP None Detected; ETHANOL SP None Detected; ISOPROPANOL SP None Detected; METHANOL SP None Detected
== END ==
LOC: M SFHCCLAY 11:30
PROVIDERS: ATTEND Physician Assistant
DX: F19.10 Other psychoactive substance abuse, uncomplicated (principal); F41.8 Other specified anxiety disorders
CPT/HCPCS: 80053; 84439; 84443; 85025; G0480

== ENCOUNTER → 2024-11-20 | Outpatient (REF) | payer OTHER ==
[2024-11-20 16:36] LABS: BASO # 0.1 10^3/uL (0.0-0.2); BASO % 0.8 % (0.0-1.0); EOS # 0.1 10^3/uL (0.0-0.5); EOS % 1.2 % (0.0-3.0); HEMATOCRIT 46.5 % (36.0-47.0); HEMOGLOBIN 15.3 g/dl (12.0-15.5); LYMPH # 1.5 10^3/uL (1.5-5.0); MEAN CORPUSCULAR HEMOGLOBIN 31.7 pg (27.0-33.0); MEAN CORPUSCULAR HGB CONC 32.9 g/dl (32.0-36.5); MEAN CORPUSCULAR VOLUME 96.5 fl (80.0-96.0); MONO # 0.7 10^3/uL (0.0-0.8); MONO % 8.7 % (2.0-8.0); NEUTROPHILS # 5.2 10^3/uL (1.5-8.5); PLATELET COUNT, AUTOMATED 241 10^3/uL (150-450); RED BLOOD COUNT 4.82 10^6/uL (4.00-5.40); WHITE BLOOD COUNT 7.5 10^3/uL (4.0-10.0)
[2024-11-20 16:49] LABS: INR 1.22; PROTHROMBIN TIME 15.7 SECONDS (12.5-14.5)
[2024-11-20 16:55] LABS: IRON (FE) 68 UG/DL (50-170); PERCENT SATURATION 22.4 % (13.2-45.0); TOTAL IRON BINDING CAPACITY 304 UG/DL (250-425)
[2024-11-20 16:56] LABS: FREE T4 1.32 NG/DL (0.89-1.76)
[2024-11-20 16:57] LABS: FERRITIN 326.2 NG/ML (7.3-270.7); THYROID STIMULATING HORMONE 1.833 uIU/ML (0.55-4.78)
[2024-11-20 16:58] LABS: ALBUMIN 3.8 G/DL (3.2-5.2); ALKALINE PHOSPHATASE 101 U/L (35-104); ALT/SGPT 58 U/L (7.0-40); AST/SGOT 38 U/L (<34); BILIRUBIN,TOTAL 0.6 MG/DL (0.3-1.2); BLOOD UREA NITROGEN < 5 MG/DL (9-23); CALCIUM LEVEL 8.8 MG/DL (8.3-10.6); CARBON DIOXIDE LEVEL 29 MMOL/L (20-31); CHLORIDE LEVEL 108 MMOL/L (98-107); CHOLESTEROL LEVEL 117 MG/DL (<200); CHOLESTEROL RISK RATIO 2.82 (<5); CREATININE FOR GFR 0.48 MG/DL (0.55-1.30); GLOMERULAR FILTRATION RATE > 60.0 (>45); GLUCOSE, FASTING 82 MG/DL (74-106); HDL CHOLESTEROL 41.4 MG/DL (>40); LDL CHOLESTEROL 62.2 MG/DL (<100); NON-HDL-C 75.6 MG/DL; POTASSIUM SERUM 3.7 MMOL/L (3.5-5.1); SODIUM LEVEL 143 MMOL/L (136-145); TOTAL PROTEIN 7.4 G/DL (5.7-8.2); TRIGLYCERIDES LEVEL 67 MG/DL (<150); VITAMIN B12 LEVEL 485 PG/ML (211-911)
== END ==
LOC: M SFHCCLAY 11:30
PROVIDERS: ATTEND Nurse Practitioner Family
DX: I25.810 Atherosclerosis of coronary artery bypass graft(s) without angina pectoris (principal); I10 Essential (primary) hypertension; E78.5 Hyperlipidemia, unspecified; J44.9 Chronic obstructive pulmonary disease, unspecified; D50.9 Iron deficiency anemia, unspecified; I50.32 Chronic diastolic (congestive) heart failure; F41.8 Other specified anxiety disorders

== ENCOUNTER → 2024-11-27 | Outpatient (REF) | payer OTHER | LOC: M SFHCCLAY 10:45 | PROVIDERS: ATTEND Nurse Practitioner Family | DX: J06.9 Acute upper respiratory infection, unspecified (principal) ==

== ENCOUNTER → 2024-11-27 | Outpatient (CLI) | payer OTHER | LOC: M WUC 11:59 | PROVIDERS: ATTEND Nurse Practitioner Family | DX: J06.9 Acute upper respiratory infection, unspecified (principal) ==

== ENCOUNTER → 2025-08-15 | Outpatient (REF) | payer OTHER ==
[~2025-08-15] MED LIST changes: -AMIO200T49 PO; +AMIO200T54 PO
== END ==
LOC: M SFHCCLAY 13:27
PROVIDERS: ATTEND Nurse Practitioner Family
DX: I48.0 Paroxysmal atrial fibrillation (principal); Z79.01 Long term (current) use of anticoagulants; D50.9 Iron deficiency anemia, unspecified; F41.8 Other specified anxiety disorders; I25.810 Atherosclerosis of coronary artery bypass graft(s) without angina pectoris; I10 Essential (primary) hypertension; E78.5 Hyperlipidemia, unspecified; J44.9 Chronic obstructive pulmonary disease, unspecified; I50.32 Chronic diastolic (congestive) heart failure; F17.210 Nicotine dependence, cigarettes, uncomplicated